=== PATIENT | male | born 1945 | race Asian ===

== ENCOUNTER 2023-11-07 14:26 | Outpatient (RCR) | payer OTHER, SELFPAY | END 2023-11-07 23:59 | disposition home or self-care (01) | LOC: RPT 14:26 | PROVIDERS: ATTENDING PHYSICIAN Psychiatry & Neurology Neurology; FAMILY PHYSICIAN Family Medicine | DX: R26.81 Unsteadiness on feet (principal); Z73.6 Limitation of activities due to disability; G25.81 Restless legs syndrome; R20.0 Anesthesia of skin; M25.512 Pain in left shoulder | CPT/HCPCS: 97110; 97112; 97163 ==

== ENCOUNTER 2023-11-11 14:24 | Outpatient (RCR) | payer OTHER, SELFPAY | END 2023-11-11 23:59 | disposition home or self-care (01) | LOC: RPT 14:24 | PROVIDERS: ATTENDING PHYSICIAN Psychiatry & Neurology Neurology; FAMILY PHYSICIAN Family Medicine | DX: R26.81 Unsteadiness on feet (principal); Z73.6 Limitation of activities due to disability | CPT/HCPCS: 97110; 97112 ==

== ENCOUNTER → 2023-11-14 08:34 | Outpatient (REF) | payer OTHER, SELFPAY | LOC: PAVMRI 08:34 | PROVIDERS: ATTENDING PHYSICIAN Psychiatry & Neurology Neurology | DX: R41.3 Other amnesia (principal) | CPT/HCPCS: 70553; A9575 ==

== ENCOUNTER 2024-10-21 15:16 | Inpatient (IN) | payer OTHER, SELFPAY ==
[2024-10-21] VITALS (11 sets, daily range): BP systolic 105–160; BP diastolic 55–93; BMI 20.4
--- NOTE | 2024-10-21 09:11 | ED.GENMED ---
History of Present Illness
<Jae Mckoy PA-C - Last Filed: 10/21/24 14:36>
General
Chief Complaint: Weakness
Source: patient, spouse and family
Time Seen by Provider: 10/21/24 08:58
History of Present Illness
History of Present Illness:
79-year-old male with past medical history of hypertension, hyperlipidemia, early Alzheimer's dementia, restless leg syndrome presenting to the emergency department with family who states that over the last 2 days patient has had decreasing change
in mental status noting to be very weak, yesterday unable to dress himself and had urinated on himself, today was unable to find the bathroom, defecated on himself and was too weak to walk. Family states this is very atypical for the patient.
Patient is able to tell me he is not having any pain and family is reporting there is no recent sick contacts, travel, recent antibiotics and patient has not been complaining of any chest pain, shortness of breath, cough, other URI-like symptoms,
abdominal pain, nausea or vomiting. No medications were provided prior to arrival. No other concerns at this time
Past History
<Jae Mckoy PA-C - Last Filed: 10/21/24 14:36>
Past History
ED Past Medical History: HTN, Hypercholesterolemia and Other (Dementia)
ED Past Surgical History: Urological
Social History
Tobacco: Non-smoker
Alcohol: None
Drug: None
Personal:
Living: with family
Review of Systems
<Jae Mckoy PA-C - Last Filed: 10/21/24 14:36>
Review of Systems
All Other Systems: ROS reviewed and negative except as documented in HPI and ROS
Phy Exam
<Jae Mckoy PA-C - Last Filed: 10/21/24 14:36>
Physical Exam
Physical Exam:
GENERAL: Alert , appears slightly older than stated age, soft-spoken, rigors
HEAD: Normocephalic atraumatic
EYE: Clear conjunctiva
NECK: Supple
ENT: o/p clr, mmm.
CARDIAC: Borderline tachycardic rate between 98 and 102 bpm, normal rhythm, systolic murmur at the left sternal border noted
LUNGS: Clear breath sounds bilaterally, no acute respiratory distress, no wheezes/rales/rhonchi
ABDOMEN: Soft, without focal tenderness, no r/g, no cvat
NEUROLOGICAL: Alert and oriented to person place and time
SKIN: Warm and dry, skin intact.
MUSCULOSKELETAL: No edema, well perfused.
PSYCH: Normal and appropriate interaction.
Scores
<Jae Mckoy PA-C - Last Filed: 10/21/24 14:36>
Heart Failure Risk
Heart Failure Risk Score: Not Applicable
Heart Score for Chest Pain Patients
STEMI patient?: Not applicable
Withdrawal Assessment of Alcohol
Withdrawal Assessment Completed?: Not applicable
Course
<Jae Mckoy PA-C - Last Filed: 10/21/24 14:36>
Orders/Labs/Results
Orders:
Orders
10/21/24 09:10
Straight cath- Treatment ONCE
0.9% Sodium Chloride 1000 ml [Nss] 1,000 ml IV BOLUS
CR Chest Portable - 1 View Urgent
Comment:
Reason For Exam: AMS, fever
Reason Study Needs to be Portable: Unable to Transport
10/21/24 09:11
CT Head W/o Iv Contrast Urgent
Comment:
Reason For Exam: AMS
10/21/24 09:16
Basic Metabolic Panel Urgent
Complete Blood Count/With Diff Urgent
Lactic Acid Q4H
Comment: CANCEL 2nd LACTIC ACID IF 1st LACTIC ACID IS LESS THAN 2
Blood Culture Q30M
[facility] Source: Blood/Venous
Specimen Description:
10/21/24 09:49
COVID-19 Antigen Urgent
Source: Nasal Swab
Urinalysis Reflex To Culture Urgent
Date Specimen was Collected: 10/21/24
Time Specimen was Collected: 09:38
Urine Microscopic Reflex Cult Urgent
Blood Culture Q30M
[facility] Source: Blood/Venous
Specimen Description:
10/21/24 09:57
Acetaminophen [Tylenol] 1,000 mg PO NOW STA
10/21/24 10:48
CT Chest/abd/pel W Iv Cont Urgent
Comment:
Reason For Exam: change in mental status, fever, unclear etiology
10/21/24 14:01
Piperacillin/Tazo 3.375 Gram [Zosyn] 3.375 gram in 50 ml IV NOW
Vancomycin [Vancocin] 1,500 mg 0.9% Sodium Chloride 500 ml [Nss] 500 ml IV NOW
Abnormal Lab Results
10/21/24 10/21/24
09:16 09:49
RBC 4.61 L 10^6/uL
(4.70-6.10)
MPV 10.6 H fL
(7.4-10.4)
Absolute Neuts (auto) 6.6 H 10^3/uL
(1.4-6.5)
Absolute Lymphs (auto) 1.0 L 10^3/uL
(1.2-3.4)
Neutrophils % 81.7 H %
(42.2-75.2)
Lymphocytes % 12.0 L %
(20.5-51.1)
Carbon Dioxide 19 L mmol/L
(22-30)
BUN 35 H mg/dl
(9-20)
Creatinine 1.4 H mg/dL
(0.7-1.3)
Glucose 127 H mg/dl
(70-99)
Urine Ketones 2+ A
(Negative)
Ur Occult Blood Reflex 4+ A
(Negative)
Urine RBC 3-6 A /HPF
(0-2)
Urine Bacteria (Reflex) Few A
(Negative)
Urine Albumin (Reflex) 2+ A
(Neg - Trace)
10/21/24 09:16
10/21/24 09:16
Vital Signs
Initial and Last Documented VS:
Initial Vital Signs
Temp Pulse Resp BP Pulse Ox
99.8 F 102 20 122/83 96
10/21/24 08:47 10/21/24 08:47 10/21/24 08:47 10/21/24 08:47 10/21/24 08:47
Last Documented Vital Signs
Temp Pulse Resp BP Pulse Ox
102 F H 76 17 145/74 95
10/21/24 09:56 10/21/24 13:30 10/21/24 13:30 10/21/24 13:09 10/21/24 13:30
<Nathaniel Lock, DO - Last Filed: 10/21/24 10:27>
Orders/Labs/Results
Orders:
Orders
10/21/24 09:10
Straight cath- Treatment ONCE
0.9% Sodium Chloride 1000 ml [Nss] 1,000 ml IV BOLUS
CR Chest Portable - 1 View Urgent
Comment:
Reason For Exam: AMS, fever
Reason Study Needs to be Portable: Unable to Transport
10/21/24 09:11
CT Head W/o Iv Contrast Urgent
Comment:
Reason For Exam: AMS
10/21/24 09:16
Basic Metabolic Panel Urgent
Complete Blood Count/With Diff Urgent
Lactic Acid Q4H
Comment: CANCEL 2nd LACTIC ACID IF 1st LACTIC ACID IS LESS THAN 2
Blood Culture Q30M
[facility] Source: Blood/Venous
Specimen Description:
10/21/24 09:49
COVID-19 Antigen Urgent
Source: Nasal Swab
Urinalysis Reflex To Culture Urgent
Date Specimen was Collected: 10/21/24
Time Specimen was Collected: 09:38
Urine Microscopic Reflex Cult Urgent
Blood Culture Q30M
[facility] Source: Blood/Venous
Specimen Description:
10/21/24 09:57
Acetaminophen [Tylenol] 1,000 mg PO NOW STA
10/21/24 10:48
CT Chest/abd/pel W Iv Cont Urgent
Comment:
Reason For Exam: change in mental status, fever, unclear etiology
10/21/24 14:01
Piperacillin/Tazo 3.375 Gram [Zosyn] 3.375 gram in 50 ml IV NOW
Vancomycin [Vancocin] 1,500 mg 0.9% Sodium Chloride 500 ml [Nss] 500 ml IV NOW
Abnormal Lab Results
10/21/24 10/21/24
09:16 09:49
RBC 4.61 L 10^6/uL
(4.70-6.10)
MPV 10.6 H fL
(7.4-10.4)
Absolute Neuts (auto) 6.6 H 10^3/uL
(1.4-6.5)
Absolute Lymphs (auto) 1.0 L 10^3/uL
(1.2-3.4)
Neutrophils % 81.7 H %
(42.2-75.2)
Lymphocytes % 12.0 L %
(20.5-51.1)
Carbon Dioxide 19 L mmol/L
(22-30)
BUN 35 H mg/dl
(9-20)
Creatinine 1.4 H mg/dL
(0.7-1.3)
Glucose 127 H mg/dl
(70-99)
Urine Ketones 2+ A
(Negative)
Ur Occult Blood Reflex 4+ A
(Negative)
Urine RBC 3-6 A /HPF
(0-2)
Urine Bacteria (Reflex) Few A
(Negative)
Urine Albumin (Reflex) 2+ A
(Neg - Trace)
10/21/24 09:16
10/21/24 09:16
Vital Signs
Initial and Last Documented VS:
Initial Vital Signs
Temp Pulse Resp BP Pulse Ox
99.8 F 102 20 122/83 96
10/21/24 08:47 10/21/24 08:47 10/21/24 08:47 10/21/24 08:47 10/21/24 08:47
Last Documented Vital Signs
Temp Pulse Resp BP Pulse Ox
102 F H 76 17 145/74 95
10/21/24 09:56 10/21/24 13:30 10/21/24 13:30 10/21/24 13:09 10/21/24 13:30
<Jae Mckoy PA-C - Last Filed: 10/21/24 14:36>
MDM/Problems Addressed
Differential Diagnosis Includes:
Urinary tract infection
Pneumonia
COVID/flu or other viral etiology
Given the cardiac murmur endocarditis considered although patient has never had cardiac workup to confirm if this murmur is new or old
Bacteremia/sepsis
Dehydration
Anemia
MDM/Problems Addressed:
79-year-old male presenting to the emergency department for evaluation of change in mental status over the last 24 to 48 hours. Today patient defecated on himself, was unaware of where he was in the house and required significant assistance to
move. On arrival here patient is mildly tachycardic and found to have a low-grade oral temperature of 99.8. Will check rectal temperature. Sepsis workup initiated. Fluids ordered. Anticipate admission
<Jae Mckoy PA-C - Last Filed: 10/21/24 14:36>
*Radiology
Radiology exam reviewed: radiology read reviewed
*Pulse Oximetry
SaO2: 96
Oxygen Mode of Delivery: Room air
Patient hypoxic: no
*Haul Driver Interpretation
Rate: tachycardiac
Heart Rate: 100
Rhythm: sinus
*Critical Care Note
Total Time (30-74mins, 75-104mins- exclusive of procedures): Not Applicable
Data Reviewed
Review of Other/Old Records Reveals: Radiology Studies
<Jae Mckoy PA-C - Last Filed: 10/21/24 14:36>
Patient Management
Discussion with other providers: Hospitalist
Escalation/DeEscalation of care consider admission/obs:
Patient's workup is unrevealing for any obvious infectious etiologies. He remains altered per family. Lactic acid and white blood cell count normal. CT with possible colitis. Discussed case with hospitalist team who accepts for admission. They
are requesting we order broad-spectrum antibiotics to cover for bacteremia. Vancomycin and Zosyn were ordered.
ED Attending Note
<Jae Mckoy PA-C - Last Filed: 10/21/24 14:36>
-
Portions of this chart may have been created with voice recognition software.� Occasional wrong word or��sound alike� substitutions may have occurred due to the inherent limitations of voice recognition software.
<Nathaniel Lock DO - Last Filed: 10/21/24 10:27>
ED Attending Note
Patient seen and examined by attending physician: Yes
I performed the substantive portion of visit, reviewed & personally made and approve the management plan that is documented in note by myself or TOSIN.: Yes
ED Attending Note:
79-year-old male who presents with increased weakness. Has a history of BPH hypertension. does report he has been having some upper back pain over the last 1 week. Skin appears normal. Abdomen soft and nontender. Chest x-ray unremarkable.
White blood cell count 8.1. For now unclear source but will cover broad-spectrum antibiotics. Blood cultures pending no significant risk factors for spinal infection. No meningismus. Question whether this could be viral versus other
Discharge Plan
Departure
Patient Disposition: Admit
Date of Disposition: 10/21/24
Time of Disposition: 13:59
Presentation/result/management discussed w/ accepting MD/DO: Hospitalist
Discharge Problem:
Fever, Altered mental status
Prescriptions:
No Action
simvastatin 40 MG tablet
40 mg PO DAILY
pramipexole 0.5 MG tablet
0.5 mg PO HS
amlodipine 10 MG tablet
10 mg PO DAILY
losartan [Cozaar] 100 MG tablet
100 mg PO DAILY
tolterodine 4 MG capsule,extended release 24hr
4 mg PO DAILY 14 Days Qty: 14 0RF
phenazopyridine 200 MG tablet
200 mg PO [id number] PRN (Reason: burning/stinging with voiding) 5 Days Qty: 10 0RF
levofloxacin 500 MG tablet
500 mg PO DAILY 5 Days Qty: 5 0RF
Referrals:
Campbell Mejia DO [Family Provider, Family Practice]
Interventions
Interventions:
*Risk Screen - Suicide Last Done: 10/21/24 09:54
*Neglect/Abuse Screening Last Done: 10/21/24 09:54
*ED- Fall Risk Assessment Last Done: 10/21/24 09:54
*ED COVID-19 Vaccine History Last Done: 10/21/24 09:54
ED- Cardiac Assessment Last Done: 10/21/24 09:54
ED- Neurological Assessment Last Done: 10/21/24 09:54
ED- Pulmonary Assessment Last Done: 10/21/24 09:54
Discharge Date and Time
Print Language: Mohawk
[2024-10-21 09:28] LABS: Hematocrit 41.1 % (39.0-52.0); Hemoglobin 14.2 g/dL (13.0-18.0); Mean Corp Hgb Conc. 34.5 g/dL (33.0-37.0); Mean Corpuscular Volume 89.2 fL (80.0-94.0); Nucleated Red Blood Cells % 0 % (-); Red Cell Dist. Width 12.1 % (11.5-14.5)
[2024-10-21 09:50] LABS: Blood Urea Nitrogen 35 mg/dl (9-20); Calcium 9.1 mg/dl (8.4-10.2); Carbon Dioxide 19 mmol/L (22-30); Chloride 105 mmol/L (98-107); Glucose 127 mg/dl (70-99); Sodium 135 mmol/L (135-145); eGFR 50.81
[2024-10-21] MEDS: NSS 1000 IV ×2 (09:51→17:57)
[2024-10-21 09:54] LABS: Platelet Count 146 10^3/uL (130-400)
[2024-10-21] MEDS: TYLENOL 1000 MG PO (10:02)
[2024-10-21 10:14] LABS: Urine Character Clear (Clear)
[2024-10-21 10:19] LABS: COVID-19 Antigen Negative (Negative)
[2024-10-21 10:23] LABS: Urine White Cell 0-2 /HPF (0-5)
[2024-10-21] MEDS: ZOSYN 50 IV ×2 (14:24→20:28)
[2024-10-21] MEDS: VANCOCIN 530 MG IV (15:33)
--- NOTE | 2024-10-21 15:37 | HPS.HSE ---
Addendum entered and electronically signed by Jory Willis MD 10/21/24 17:03:
Patient condition discussed with the 2 daughters 1 was at the bedside and the other 1 is a physician in [place] over the phone and all the question answered patient condition explained to them in detail.
Addendum entered and electronically signed by Jory Willis MD 10/21/24 15:59:
Other impression is systolic murmur according to the patient and the family is new
With been febrile, will get an echo and blood culture to rule out endocarditis but unlikely.
Original Note:
Family Physician
-
Family Physician: Campbell Mejia DO
Chief Complaint
-
Generalized weakness and abdominal discomfort
History of Present Illness
79-year-old male from [place], speaks good degree of Japanese presented to the hospital complaining of generalized body ache, poor appetite, fever and abdominal bloating and discomfort over the last few days, admit poor appetite and denied any nausea
or vomiting while admitted subjective fever and chills, denies any diarrhea any constipation or any rectal bleeding or change in stool or urine color, no sick contacts or recent travel, no headache or vision change or any weakness or numbness in
extremities.
Workup in the ER kind concerning for fever with a CT abdomen pelvis concerning for colitis.
According to the family members they were here earlier subacute dementia and had some change in mental status he has been unable to express or care for himself and has been urinating on himself. And look like today was not able to find the
bathroom. His condition discussed with the ER physician as on my eval no family member was in the room.
Medical History
Past Medical History
Past Medical History: Reports Other
Additional Past Medical History:
Past medical history:
Hypertension
Sleep anemia
Seasonal allergy
Restless leg syndrome
Dementia
Mild to moderate mitral regurgitation
Surgical history: Appendectomy
TURP
Cataract surgery
Social history: Lives with the family, no smoking alcohol use
Family history: Reviewed and noncontributory
Past Surgical History: Reports Other
Social History
Unable to obtain full social history at this time due to: Other
Family History
Family History: Other
Allergies / Home Medications
Allergies reflects when Allergies were last updated in [employer].
Home Medications with original date entered in [employer]
Allergy/Medication List:
Allergies
Allergy/AdvReac Type Severity Reaction Status Date / Time
seasonal Allergy nasal Uncoded 10/21/24 08:50
congestion
Home Medications
losartan 100 mg tablet (Cozaar) 100 mg PO DAILY Blood pressure 02/13/21
simvastatin 40 mg tablet 40 mg PO QPM High cholesterol 02/13/21
amlodipine 2.5 mg tablet (Norvasc) 2.5 mg PO DAILY 10/21/24
donepezil 10 mg tablet 10 mg PO HS 10/21/24
metformin 500 mg tablet,extended release 24 hr 500 mg PO DAILY 10/21/24
pramipexole 0.25 mg tablet 0.25 mg PO HS 10/21/24
Review of Systems
-
A 12 point ROS was completed and negative except as noted: Yes
Physical Exam
Vital Signs
Vital Signs
Temp Pulse Resp BP Pulse Ox
99.1 F 82 16 156/72 98
10/21/24 14:30 10/21/24 15:00 10/21/24 15:00 10/21/24 14:00 10/21/24 14:00
Physical exam:
General: Awake, alert and oriented x2, lethargic, not in distress and holds appropriate conversation, speaks in low tone of voice.
HEENT: No active discharge, ecchymosis or bruising, dry lips, tongue and mucous membrane.
Eyes: No discharge or red conjunctiva, no nystagmus, pupils are reactive and equal
Neck:Supple, no JVD no bruit no goiter.
Respiratory: Normal AP contour and diameter, normal chest wall movement, normal respiratory effort, no respiratory distress,
Lungs: Good air entry bilaterally, no wheezing or rhonchi, no rales or crackles
Heart: S1, S2 regular, normal rate, no added sound.
Gastrointestinal: Positive bowel sounds, soft, nontender, no guarding or rigidity or organomegaly
Musculoskeletal: , no chest wall abnormality or tenderness. , no muscle tenderness or any joint swelling or tenderness.
Extremities: Mild lower extremities pitting edema, good peripheral pulses, good range of motion
Skin: Warm and dry, no ulceration, normal color.
Neurological: Lethargic, speaks in low tone of voice, oriented x 2, moves extremities freely, no facial droop
Psychiatric: Normal mood, questionable judgment, and insight, flat affect
Physical Exam
General: Other
Laboratory Results
-
10/21/24 09:16
10/21/24 09:16
Laboratory Results
Lactic Acid Cancelled 10/21/24 13:15
Total Bilirubin Cancelled 10/21/24 09:16
AST Cancelled 10/21/24 09:16
ALT Cancelled 10/21/24 09:16
Alkaline Phosphatase Cancelled 10/21/24 09:16
CT chest, abdomen and pelvis:
Moderate circumferential thickening of the distal sigmoid and rectum with mild proximal large bowel dilatation probably due to colitis. Clinical correlation recommended. Inflammation, infection and less likely ischemia not excluded.,
Bilateral too small to characterize hypodense renal lesions likely benign cysts. Stable Simple right renal cyst. New
Severe prostate hypertrophy. Progressed.
CT brain, showed no acute abnormality
Data Reviewed
-
Diagnostic Radiology: Image Personally Visualized and interpreted and Report Reviewed by me
Lab Data: Labs Reviewed by me
Old Records: Reviewed
Impression/Plan
-
IMPRESSION:
79-year-old male brought to the hospital for generalized weakness, and mental status change and patient complaining of abdominal discomfort and poor appetite and he is a poor historian
Workup currently concerning for colitis per abdominal CAT scan.
Acute colitis
Started on a full liquid diet and advance as tolerated
IV Zosyn
IV fluid
Monitor vital sign
Recheck lab
Acute on chronic kidney injury: Likely secondary poor oral intake
IV fluid
Recheck
Avoid nephrotoxin.
Diabetes:
Continue to hold metformin
Glucoscan
Restless leg syndrome, pramipexole at bedtime
All discussed with the patient
Discussed with ER physician
CODE STATUS full code
DVT prophylaxis heparin subcu
--- NOTE | 2024-10-21 15:50 | CM ---
office manager reviewed patient's chart and met with patient and daughter at bedside, patient lives with his spouse in a 2 story home, patient is independent with adl's and ambulation, no dme, per daughter patient has balance issues while walking,
patient would benefit from PT/OT evaluations.
PCP: Campbell Mejia
Pharmacy: Pharmacy In [place].
Plan; Await PT/OT evaluation and discuss discharge planning needs.
[2024-10-21 16:35] LABS: Glucose - Point of Care 113 mg/dl (70-99)
[2024-10-21] MEDS: NOVOLOG FLEXPEN-MODERATE RESISTANCE SC (16:40)
[2024-10-21] MEDS: TYLENOL 650 MG PO ×2 (17:33→22:29)
[2024-10-21] MEDS: HEPARIN 5000 UNITS SC ×2 (17:56→23:10)
--- NOTE | 2024-10-21 18:13 | PHA.VAN.IN ---
Assessment
- Assessment
Renal Function: SCR Appears Elevated from baseline
Concomitant Antimicrobials: Zosyn 3.375 gram IV q6h
Plan
- Plan
Initial / Loading Dose: Vancomycin 1500 mg IV - 10/21
Maintenance Regimen: Dose by level regimen
Monitoring: Vancomycin random level 10/22 06:00
Pharmacokinetics Vancomycin I
- -
Patient Age: 79
Patient Sex: Male
Vancomycin Day #: 1
Indication: Gi / Intra-Abdominal
Requesting Provider: SARATH Clemente
Pertinent Antimicrobial Allergies:
None
Height / Weight:
Height 5 ft 9 in
Actual Weight 62.5 kg
Pertinent Past Medical History: BMI: 20.3
- Vital Signs / Lab Results
Temp Pulse Resp BP Pulse Ox
100.9 F H 101 23 123/72 98
10/21/24 17:02 10/21/24 17:06 10/21/24 17:00 10/21/24 17:06 10/21/24 14:00
Lab Results - Hematology
10/21/24
09:16
WBC 8.1
Lab Results - Chemistry
10/21/24
09:16
BUN 35 H
Creatinine 1.4 H
Albumin Cancelled
10/21/24 10/21/24
09:16 13:15
Lactic Acid 1.9 Cancelled
Lab Results - Urine
10/21/24
09:49
Urine Nitrite (Reflex) Negative
Leukocyte Esterase Rfl Negative
Urine WBC (Reflex) 0-2
Ur Squamous Epith Cells 3-5
Urine Bacteria (Reflex) Few A
[2024-10-21] MEDS: LIPITOR 20 MG PO (19:18)
--- NOTE | 2024-10-21 20:32 | PTCARENOTE ---
Rec'd pt from ER. transferred to bed. NSS infusing at 80ml/hr/ and daughter at the bedside assisting with admission questions. pt denies pain. call cueva in reach. oriented pt and family to room.
[2024-10-21 20:56] LABS: Glucose - Point of Care 96 mg/dl (70-99)
[2024-10-21] MEDS: ARICEPT 10 MG PO (22:14)
[2024-10-21] MEDS: MIRAPEX 0.25 MG PO (23:09)
[2024-10-22] MEDS: ZOSYN 50 IV ×4 (02:13→19:40)
[2024-10-22] MEDS: TYLENOL 650 MG PO ×3 (04:40→18:15)
[2024-10-22 07:10] VITALS: BP 146/68
[2024-10-22 07:18] LABS: Glucose - Point of Care 94 mg/dl (70-99)
--- NOTE | 2024-10-22 07:52 | W.PN.HOSP.TC ---
Today's Communication/Plan
-
cont empiric abx
follow cultures
cont IVF support till PO intake improves
trend temp, fever control
Assessment / Plan
Assessment / Plan
Physical Exam
General: No pallor, cyanosis, or jaundice. Appears generally weak
HEENT: Normocephalic atraumatic moist mucus membranes
NECK: Supple. No JVD Carotid Bruits
RESPIRATORY: Lungs clear to auscultation. No crackles wheezes stridor
CVS: S1, S2 normal. RRR. systolic murmur /
ABDOMEN: Soft, non-tender. No distension. BS+/normal.
EXTREMITIES: No peripheral cyanosis or edema.
NURSING PROJECT COORDINATOR: Lethargic arousable oriented x 3 follows simple commands
Psych: calm
IMPRESSION:
79M hx HTN mild dementia baseline independent ADL's here for generalized weakness, AMS, and c/o abdominal discomfort and poor appetite. Workup currently concerning for colitis per abdominal CAT scan and possible sepsis w/ fever and sinus
tachycardia. No significant lactic acidosis or hypotension.
Acute colitis
Sepsis (leukocytosis tachycardia)
Acute Toxic Metabolic Encephalopathy
Started on a full liquid diet, advance as tolerated
IVF support till oral intake improves
Follow blood cx's NGTD
ID eval appreciated
cont empiric IV Zosyn vanc as per ID
trend temp WBC
CT Head appreciated no acute abn's
Systolic Murmur 3/
ECHO appreciated EF 65-70% mild aortic stenosis mild mod MR
ECHO also noted mobile/aneurysmal interarterial septum with no evidence shunting, possible lipomatous hypertrophy per, no further cardiac work up indicated as per discussion with Cardiology
Severe prostate hypertrophy progresses as noted on CT
Hx TURP follows Dr Mark najera
bladder scan prn
Acute Vs CKD III
monitor renal function
Diabetes:
hold metformin
A1c 6.1 noted prediabetes level
sliding scale for now
Restless leg syndrome, pramipexole at bedtime
CODE STATUS full code
DVT prophylaxis heparin subcu
Discussed with patient's daughter Diego Weiss
I spent a total of 55 minutes with the patient or on the floor. More than 50% of this time involved counseling and coordination of care.
Anticipated Discharge: 24 - 48 hours
Subjective/Interval History
-
Date of Service: October 22, 2024
lethargic but arousable oriented x3 follows simple commands. Appears relatively comfortable at time of evaluation. noted intermittent fever chills throughout day.
Objective Data
-
Labs:
Laboratory Results
10/22/24
07:12
WBC Pending
Hgb Pending
Hct Pending
Plt Count Pending
Sodium Pending
Potassium Pending
Chloride Pending
Carbon Dioxide Pending
BUN Pending
Creatinine Pending
Glucose Pending
Calcium Pending
Vital Signs:
Vital Signs
Temp Pulse Resp BP Pulse Ox
99.9 F 80 18 118/85 95
10/22/24 01:00 10/21/24 23:18 10/21/24 23:18 10/21/24 23:18 10/21/24 23:18
I&O
10/21/24 10/22/24 10/23/24
06:59 06:59 06:59
Intake Total 1000 / 1000
Balance 1000 / 1000
[2024-10-22 07:55] LABS: Hematocrit 37.4 % (39.0-52.0); Hemoglobin 12.5 g/dL (13.0-18.0); Mean Corp Hgb Conc. 33.4 g/dL (33.0-37.0); Mean Corpuscular Volume 92.1 fL (80.0-94.0); Platelet Count 145 10^3/uL (130-400); Red Cell Dist. Width 12.1 % (11.5-14.5)
[2024-10-22] MEDS: HEPARIN 5000 UNITS SC ×3 (08:03→23:07)
[2024-10-22 08:08] LABS: Blood Urea Nitrogen 20 mg/dl (9-20); Calcium 7.9 mg/dl (8.4-10.2); Carbon Dioxide 23 mmol/L (22-30); Chloride 109 mmol/L (98-107); Estimated Creatinine Clearance 38 ml/min; Glucose 89 mg/dl (70-99); Potassium 3.5 mmol/L (3.5-5.1); Sodium 138 mmol/L (135-145); eGFR 55.53
[2024-10-22] MEDS: NOVOLOG FLEXPEN-MODERATE RESISTANCE SC ×2 (08:22→16:53)
[2024-10-22] MEDS: COZAAR 100 MG PO (08:27)
[2024-10-22] MEDS: NORVASC 2.5 MG PO (08:27)
--- NOTE | 2024-10-22 08:52 | PHA.VAN.FU ---
Vancomycin Assessment / Plan
- Assessment
Renal Function: SCR Decreasing (SCR slightly decreased, BUN decreased)
WBC's are: WNL
In the past 24 hrs, patient has been: Febrile
Concomitant Antimicrobials: piperacillin/tazobactam
- Assessment - Therapeutic Drug Monitoring
Random Level: 8.7 - drawn ~15.5H after 1500mg loading dose
- Dosing Plan
Dosing by Level: Re-dose today (Vanc 1000mg)
- Monitoring Plan
Random Level: 10/23 06
- Follow Up
Pharmacy will continue to follow.
Vancomycin Follow UP
- -
Patient Age: 79
Patient Sex: Male
Vancomycin Day #: 2
Indication: Gi / Intra-Abdominal
Requesting Provider: SARATH Clemente
Pertinent Antimicrobial Allergies:
None
Height / Weight:
Height 5 ft 7 in
Actual Weight 59.109 kg
Pertinent Past Medical History: BMI: 20.3
- Vital Signs / Lab Results
Temp Pulse Resp BP Pulse Ox
97.8 F 67 20 146/68 97
10/22/24 08:06 10/22/24 07:10 10/22/24 07:10 10/22/24 07:10 10/22/24 07:10
Lab Results - Hematology
10/21/24 10/22/24
09:16 07:12
WBC 8.1 10.2
Lab Results - Chemistry
10/21/24 10/22/24
09:16 07:12
BUN 35 H 20
Creatinine 1.4 H 1.3
Estimated Creat Clear 38
Albumin Cancelled
10/21/24 10/21/24
09:16 13:15
Lactic Acid 1.9 Cancelled
Lab Results - Urine
10/21/24
09:49
Urine Nitrite (Reflex) Negative
Leukocyte Esterase Rfl Negative
Ur Squamous Epith Cells 3-5
Therapeutic Drug Monitoring
Random Vancomycin 8.7 ug/ml 10/22/24 07:12
[2024-10-22] MEDS: VANCOCIN 200 IV (09:02)
[2024-10-22 09:56] LABS: Glycohemoglobin (HgbA1c) 6.1 % (4.0-5.6)
[2024-10-22 11:37] LABS: Glucose - Point of Care 176 mg/dl (70-99)
[2024-10-22] MEDS: NOVOLOG FLEXPEN-MODERATE RESISTANCE 1 UNITS SC (11:45)
[2024-10-22] MEDS: NSS 1000 IV (14:14)
[2024-10-22 15:28] VITALS: BP 154/71
[2024-10-22 15:37] LABS: Vitamin D, 25-OH*** 35.3 ng/mL (30-80)
--- NOTE | 2024-10-22 16:16 | CON.ID ---
Consultation
-
Date/Time Consultation Requested: 10/22/2024 1438
Date/Time Consultation Performed: 10/22/2024 1556
Requesting Provider: Dr. Mays
Performing Provider: Dr. Cruz
Reason for Consultation: Encephalopathy
Chief Complaint / Past History
History of Present Illness
Bryan Weiss is a 79-year-old Bengali male being evaluated at the request of Dr. Mays in regards to encephalopathy. History is obtained from chart review, along with patient interview, although patient was found to provide only limited history to me.
The patient has known underlying history of Alzheimer's disease although reportedly mild, and can usually feel most of his activities of daily living. He presents to [facility] on 10/21 following approximately 48 hours of increasing
weakness, generalized malaise, inability to dress, and instances of incontinence of urine. All of the symptoms are reported to be new and not attributable to his history of Alzheimer's. Additional history includes that of some abdominal bloating
and discomfort over the prior several days, along with poor appetite. No history of nausea or vomiting.
In the ER he was found to have a temperature of 102 degrees rectally. He is continued to have fevers since, although temperature curve is slightly improved. He was not found to have a leukocytosis, but did have a left shift. He has been started
on empiric antibiotics (vancomycin, Zosyn) and infectious diseases asked to comment upon further antibiotic management.
At the present time he denies any pain to me. He denies any cough. He denies any headache. He denies any abdominal discomfort. No other review of systems could be obtained at this time.
Past History
Additional Past Medical History:
HTN
HLD
Alzheimer's disease
Restless leg syndrome
Mitral regurgitation
Additional Past Surgical History:
Appendectomy
TURP
Cataract surgery
Allergy History:
seasonal Allergy (Uncoded 10/21/24 08:50)
nasal congestion
Medications Reviewed: Yes
Current Antibiotics:
Zosyn
Vancomycin
Social History
Tobacco: Non-Smoker
Alcohol: None
Drug: None
Personal:
Living: With Family
Employment: Retired
Review of Systems
Vital Signs
Temp Pulse Resp BP Pulse Ox
100.1 F 71 20 154/71 96
10/22/24 15:28 10/22/24 15:28 10/22/24 15:28 10/22/24 15:28 10/22/24 15:28
Physical Exam
Physical Exam
Constitutional: Acutely Ill, Chronically Ill and Non-toxic
Eyes: Pupils Equal, Pupils Round, No Conjunctival Hemorrhage and Sclera Anicteric
Pharynx: Benign
Oral: No Thrush and No Ulcers
Cardiovascular: Regular Rate and S1/S2; Negative S3/S4
Pulmonary: Clear; Negative Wheezes, Rales or Rhonchi
Gastrointestinal: Soft, Non Tender, Non Distended, Normal Bowel Sounds, No Rebound and No Guarding
Extremities: Negative Edema, Cyanosis, Erythema, Splinter Hemorrhage, Venous Insufficiency or Janeway Lesions
Musculoskeletal: Negative Joint Swelling or Joint Effusion
Skin: Warm and Dry
Neurological: Awake; Negative Meningeal Signs
Psychological: Calm
Lab / Diagnostic Study Results
10/22/24 07:12
10/22/24 07:12
Abs Immat Gran (auto) 0.0 10^3/uL (0-0.05) 10/21/24 09:16
Absolute Neuts (auto) 6.6 10^3/uL (1.4-6.5) H 10/21/24 09:16
Absolute Lymphs (auto) 1.0 10^3/uL (1.2-3.4) L 10/21/24 09:16
Absolute Monos (auto) 0.5 10^3/uL (0.1-0.6) 10/21/24 09:16
Absolute Basos (auto) 0.0 10^3/uL (0-0.2) 10/21/24 09:16
Immature Gran % 0.4 % (0-0.5) 10/21/24 09:16
Neutrophils % 81.7 % (42.2-75.2) H 10/21/24 09:16
Lymphocytes % 12.0 % (20.5-51.1) L 10/21/24 09:16
Monocytes % 5.7 % (1.7-9.3) 10/21/24 09:16
Eosinophils % 0.1 % (0-6) 10/21/24 09:16
Basophils % 0.1 % (0-2) 10/21/24 09:16
Lactic Acid Cancelled 10/21/24 13:15
Ur Squamous Epith Cells 3-5 /LPF (Few) 10/21/24 09:49
Microbiology Results
Micro:
10/22/24 14:16 Nasal Screen MRSA (PCR) - Pending
Nose
10/21/24 09:49 Blood Culture - Preliminary
Blood/Venous No Growth in 24 hours- Final report to follow
10/21/24 09:16 Blood Culture - Preliminary
Blood/Venous No Growth in 24 hours- Final report to follow
Imaging:
10/21/2024 CT chest/abdomen/pelvis: no abnormal parenchymal pulmonary masses. No significant pulmonary parenchymal airspace disease. No pleural effusion. Liver, spleen, gallbladder and pancreas are unremarkable. Abdominal aorta is normal in
caliber. No significant abdominal lymphadenopathy noted. Moderate circumferential thickening of the distal sigmoid colon extends into the rectum. No free fluid. Urinary bladder is unremarkable.
Assessment / Plan
Acute encephalopathy of unclear etiology; ?infectious ?TME
Fever
Normal white count with left shift
HTN
HLD
Alzheimer's disease
Restless leg syndrome
Mitral regurgitation
Recommendations:
At present, no immediately identifiable infectious source noted.
Continue with empiric antibiotics (vancomycin, Zosyn). Follow vancomycin levels closely to prevent nephrotoxicity
Trend white count and temperature curve.
If fevers and encephalopathy persist would obtain LP and sent for appropriate studies.
Follow pending blood cultures
Further recommendations as additional data is returned.
Care Review
Plan reviewed with: Physician (Hospitalist)
[2024-10-22 16:36] LABS: Glucose - Point of Care 106 mg/dl (70-99)
[2024-10-22] MEDS: LIPITOR 20 MG PO (18:06)
[2024-10-22] MEDS: NSS IV (18:18)
[2024-10-22 19:23] VITALS: BP 107/53
[2024-10-22 19:29] LABS: Hepatitis C Antibody Reactive (Negative)
[2024-10-22 20:55] LABS: Glucose - Point of Care 101 mg/dl (70-99)
[2024-10-22] MEDS: MIRAPEX 0.25 MG PO (21:04)
[2024-10-22] MEDS: ARICEPT 10 MG PO (21:04)
[2024-10-22 23:21] VITALS: BP 160/76
[2024-10-23] VITALS (10 sets, daily range): BP systolic 69–182; BP diastolic 53–98; PULSE 66; O2SAT 93
[2024-10-23] MEDS: TYLENOL 650 MG PO ×3 (01:11→19:15)
[2024-10-23] MEDS: ZOSYN 50 IV ×4 (01:11→19:15)
[2024-10-23] MEDS: NSS 1000 IV ×2 (05:11→18:26)
[2024-10-23 07:10] LABS: Glucose - Point of Care 90 mg/dl (70-99)
[2024-10-23] MEDS: NOVOLOG FLEXPEN-MODERATE RESISTANCE SC ×2 (07:19→16:40)
[2024-10-23] MEDS: HEPARIN 5000 UNITS SC ×3 (07:20→23:44)
[2024-10-23] MEDS: NORVASC 2.5 MG PO (07:20)
[2024-10-23] MEDS: COZAAR 100 MG PO (07:20)
[2024-10-23 08:37] LABS: Hematocrit 37.7 % (39.0-52.0); Hemoglobin 12.9 g/dL (13.0-18.0); Mean Corp Hgb Conc. 34.2 g/dL (33.0-37.0); Mean Corpuscular Volume 89.8 fL (80.0-94.0); Platelet Count 146 10^3/uL (130-400); Red Cell Dist. Width 11.9 % (11.5-14.5)
--- NOTE | 2024-10-23 09:05 | PTOTSP ---
Speech Therapy Evaluation:
Pt with chronic risk factors of dysphagia (dementia), compounded by generalized weakness and encephalopathy in the setting of colitis. At bedside, mild oral impairments noted with brief oral holding, prolonged mastication, and delayed AP transfers.
No overt s/sx of aspiration across trials. CXR without pneumonia, pt without PLANT ETIOLOGIST/dysphagia hx, WBC WNL, and pt on room air.
Recommend:
1. Initiate IDDSI Level 7 (regular solids), continue thin liquids
2. Medications as best tolerated
3. Strict aspiration precautions
4. Partial assistance with intake, Full supervision
5. PLANT ETIOLOGIST to follow to monitor tolerance of diet and provide education in aspiration precautions
[2024-10-23 09:32] LABS: Blood Urea Nitrogen 13 mg/dl (9-20); Calcium 7.9 mg/dl (8.4-10.2); Carbon Dioxide 25 mmol/L (22-30); Chloride 106 mmol/L (98-107); Estimated Creatinine Clearance 41 ml/min; Glucose 112 mg/dl (70-99); Magnesium 2.1 mg/dl (1.6-2.3); Potassium 3.3 mmol/L (3.5-5.1); Sodium 136 mmol/L (135-145); eGFR > 60.00
--- NOTE | 2024-10-23 09:37 | W.PN.ID1 ---
Date of Service
Date of Service: October 23, 2024
Today's Communication
Continue antibiotics. See below�
Assessment / Plan
Acute encephalopathy of unclear etiology; ?infectious ?TME
Fever
Normal white count with left shift
HTN
HLD
Alzheimer's disease
Restless leg syndrome
Mitral regurgitation
Recommendations:
Ongoing fevers noted despite broad-spectrum antibiotics.
Continue with empiric antibiotics (vancomycin, Zosyn). Follow vancomycin levels closely to prevent nephrotoxicity
Trend white count and temperature curve.
Given ongoing fevers and encephalopathy, would pursue LP.
Follow pending blood cultures
����������������������������������������������������������
Chief Complaint
-: Fever and Other (Encephalopathy)
Subjective / Review of Systems
Patient seen and examined. Ongoing fevers noted overnight to 102.3 degrees. at the bedside and reports ongoing decreased mental acuity.
Vital Signs / Physical Exam
Vital Signs
Vital Signs
Temp Pulse Resp BP Pulse Ox
100.4 F H 72 20 152/71 98
10/23/24 07:10 10/23/24 07:10 10/23/24 07:10 10/23/24 07:10 10/23/24 07:10
Physical Exam
Constitutional: Comfortable, Chronically Ill and Non-toxic
Eyes: Sclera Anicteric
Cardiovascular: Regular Rate and S1/S2; Negative S3/S4
Pulmonary: Clear and Non Labored
Gastrointestinal: Non Distended, Normal Bowel Sounds and No Rebound
Extremities: Negative Edema, Cyanosis, Erythema, Splinter Hemorrhage, Venous Insufficiency or Janeway Lesions
Musculoskeletal: Negative Joint Swelling or Joint Effusion
Neurological: Other (Arousable to touch and voice.)
Psychological: Calm
Objective Data
Lab Data
Lab Results
10/23/24 08:04
10/23/24 08:04
Estimated Creat Clear 41 ml/min 10/23/24 08:04
Lactic Acid Cancelled 10/21/24 13:15
Total Bilirubin Cancelled 10/21/24 09:16
AST Cancelled 10/21/24 09:16
ALT Cancelled 10/21/24 09:16
Alkaline Phosphatase Cancelled 10/21/24 09:16
Most recent labs reviewed.
Micro Results:
10/21/24 09:16 Blood Culture - Preliminary
Blood/Venous No Growth in 48 hours- Final report to follow
10/22/24 14:16 Nasal Screen MRSA (PCR) - Final
Nose MRSA not detected - performed by PCR methodology.
10/21/24 09:49 Blood Culture - Preliminary
Blood/Venous No Growth in 24 hours- Final report to follow
Imaging:
10/21/2024 CT chest/abdomen/pelvis: no abnormal parenchymal pulmonary masses. No significant pulmonary parenchymal airspace disease. No pleural effusion. Liver, spleen, gallbladder and pancreas are unremarkable. Abdominal aorta is normal in
caliber. No significant abdominal lymphadenopathy noted. Moderate circumferential thickening of the distal sigmoid colon extends into the rectum. No free fluid. Urinary bladder is unremarkable.
Care Review
Plan reviewed with: Physician (Hospitalist)
[2024-10-23] MEDS: VANCOCIN 200 IV (09:51)
--- NOTE | 2024-10-23 10:39 | CM ---
Patient seen at bedside on . Patient sister with patient and assisting to eat broth. Patient for therapy assessment, recommendation is for SNF at this time. Patient plan is for discharge home with supports pending progress. CM will continue to
follow for discharge planning needs.
Plan; home with VN vs SNF; pending patient medical treatment plan
--- NOTE | 2024-10-23 11:08 | W.PN.HOSP.TC ---
Today's Communication/Plan
-
cont empiric abx
IVF support
bladder scan prn
follow cx's
Fever control
LP today with IR
PT/OT
Assessment / Plan
Assessment / Plan
Physical Exam
General: No pallor, cyanosis, or jaundice. Appears generally weak
HEENT: Normocephalic atraumatic moist mucus membranes
NECK: Supple. No JVD Carotid Bruits
RESPIRATORY: Lungs clear to auscultation. No crackles wheezes stridor
CVS: S1, S2 normal. RRR. systolic murmur 3/6
ABDOMEN: Soft, non-tender. No distension. BS+/normal.
EXTREMITIES: No peripheral cyanosis or edema.
CERAMIC ENGINEER: Lethargic arousable oriented x 3 follows simple commands
Psych: calm
IMPRESSION:
79M hx HTN mild dementia baseline independent ADL's here for generalized weakness, AMS, and c/o abdominal discomfort and poor appetite. Workup currently concerning for colitis per abdominal CAT scan and possible sepsis w/ fever and sinus
tachycardia. No significant lactic acidosis or hypotension.
Acute colitis
Sepsis (leukocytosis tachycardia)
Acute Toxic Metabolic Encephalopathy
speech eval appreciated appropriate for regular diet
IVF support till oral intake improves
Follow blood cx's NGTD
ID eval appreciated
cont empiric IV Zosyn vanc as per ID
trend temp WBC
CT Head appreciated no acute abn's
IR eval appreciated planned for LP today
Systolic Murmur 3/6
ECHO appreciated EF 65-70% mild aortic stenosis mild mod MR
ECHO also noted mobile/aneurysmal interarterial septum with no evidence shunting, possible lipomatous hypertrophy, no further cardiac work up indicated as per discussion with Cardiology
Severe prostate hypertrophy progresses as noted on CT
Hx TURP follows Dr Mark najera
bladder scan prn
Likely CKD III
suspect baseline 1.2
cont monitoring renal function
Diabetes:
hold metformin
A1c 6.1 noted prediabetes level
consistently euglycemic with minimal need for insulin correction, ok to dc sliding scale and routine FS at this time
Constipation
Restless leg syndrome, pramipexole at bedtime
PT/OT appreciated SNF rehab
CODE STATUS full code
DVT prophylaxis heparin subcu
Discussed patient, patient's Armond, and patient's daughter Diego Weiss
I spent a total of 55 minutes with the patient or on the floor. More than 50% of this time involved counseling and coordination of care.
Anticipated Discharge: 24 - 48 hours
Subjective/Interval History
-
Date of Service: October 23, 2024
No acute distress, resting comfortably in bed. Improvement noted in mental status as per family at bedside ( Armond, daughter from [place] also notes that she was able to have better conversation with patient over phone). Denies current pain.
Constipation noted.
Objective Data
-
Labs:
Laboratory Results
10/23/24 10/23/24
08:04 10:29
WBC 7.7
Hgb 12.9 L
Hct 37.7 L
Plt Count 146
PT Pending
INR Pending
Sodium 136
Potassium 3.3 L
Chloride 106
Carbon Dioxide 25
BUN 13
Creatinine 1.2
Glucose 112 H
Calcium 7.9 L
Vital Signs:
Vital Signs
Temp Pulse Resp BP Pulse Ox
98.7 F 72 20 152/71 99
10/23/24 09:57 10/23/24 07:10 10/23/24 07:10 10/23/24 07:10 10/23/24 07:20
I&O
10/22/24 10/23/24 10/24/24
06:59 06:59 06:59
Intake Total 1000 / 1000 840 / 840
Output Total 30 / 30
Balance 999 / 999 810 / 810
[2024-10-23 11:10] LABS: INR 1.12; PT 14.7 Sec (11.4-14.6)
[2024-10-23 11:40] LABS: Glucose - Point of Care 158 mg/dl (70-99)
[2024-10-23] MEDS: NOVOLOG FLEXPEN-MODERATE RESISTANCE 1 UNITS SC (11:52)
[2024-10-23] MEDS: KCL 40 MEQ PO (12:43)
--- NOTE | 2024-10-23 14:38 | PHA.VAN.FU ---
Vancomycin Assessment / Plan
- Assessment
Renal Function: SCR Decreasing
WBC's are: WNL
In the past 24 hrs, patient has been: Febrile (100.4)
Concomitant Antimicrobials: Piperacillin/tazobactam
- Assessment - Therapeutic Drug Monitoring
Random Level: 7.2 - drawn approx 23 hours after vancomycin 1000mg dose
- Dosing Plan
Dosing by Level: Re-dose today (Will give a total of vancomycin 1500mg (split dose of 1000mg and 500mg) today.)
- Monitoring Plan
Random Level: 10/24 0600
- Follow Up
Pharmacy will continue to follow.
Vancomycin Follow UP
- -
Patient Age: 79
Patient Sex: Male
Vancomycin Day #: 3
Indication: Gi / Intra-Abdominal
Requesting Provider: Dr. Cruz
Pertinent Antimicrobial Allergies:
None
Height / Weight:
Height 5 ft 7 in
Actual Weight 59.109 kg
Pertinent Past Medical History: BMI: 20.3
- Vital Signs / Lab Results
Temp Pulse Resp BP Pulse Ox
98.6 F 80 18 143/66 98
10/23/24 11:13 10/23/24 11:13 10/23/24 11:13 10/23/24 11:13 10/23/24 11:13
Lab Results - Hematology
10/21/24 10/22/24 10/23/24
09: 07:12 08:04
WBC 8.1 10.2 7.7
Lab Results - Chemistry
10/21/24 10/22/24 10/23/24
09:16 07:12 08:04
BUN 35 H 20 13
Creatinine 1.4 H 1.3 1.2
Estimated Creat Clear 38 41
Albumin Cancelled
10/21/24 10/21/24
09:16 13:15
Lactic Acid 1.9 Cancelled
Microbiology Results
10/21/24 09:49 Blood Culture - Preliminary
Blood/Venous No Growth in 48 hours- Final report to follow
10/21/24 09:16 Blood Culture - Preliminary
Blood/Venous No Growth in 48 hours- Final report to follow
10/22/24 14:16 Nasal Screen MRSA (PCR) - Final
Nose MRSA not detected - performed by PCR methodology.
Therapeutic Drug Monitoring
Random Vancomycin 7.2 ug/ml 10/23/24 08:04
[2024-10-23] MEDS: VANCOCIN HCL 500 MG 100 IV (14:45)
[2024-10-23] MEDS: LIPITOR PO (16:37)
[2024-10-23 16:41] LABS: Glucose - Point of Care 120 mg/dl (70-99)
[2024-10-23 18:11] LABS: CSF Color Colorless
[2024-10-23 18:12] LABS: CSF Color Colorless; CSF Tube # Clarity Clear
[2024-10-23 18:15] LABS: Red Cell Count/CSF 285 mm^3
[2024-10-23 18:18] LABS: White Blood Cell Count/CSF 63 mm^3 (0-5)
[2024-10-23 18:19] LABS: Red Cell Count/CSF 1103 mm^3
[2024-10-23 20:06] LABS: White Cell Count/CSF 114 mm^3 (0-5)
[2024-10-23 20:12] LABS: CSF Granulocytes 22 %
[2024-10-23 20:13] LABS: Spinal Fluid Macrophages 9 %
[2024-10-23 20:49] LABS: Glucose - Point of Care 144 mg/dl (70-99)
[2024-10-23] MEDS: MIRAPEX 0.25 MG PO (23:43)
[2024-10-23] MEDS: ARICEPT 10 MG PO (23:43)
[2024-10-23] MEDS: SENOKOT-S 1 TABLET PO (23:43)
[2024-10-24] VITALS (7 sets, daily range): BP systolic 127–164; BP diastolic 70–86; PULSE 67–96; O2SAT 96–97
--- NOTE | 2024-10-24 02:00 | PTCARENOTE ---
Patient with a temp of 102.9 at 1907. Tylenol given at 1920; ice packs placed under armpits. Repeat temp at 2005 was 100.5. The bandaid on the LP site is saturated underneath but not leaking through. Dayshift nurse said he laid flat x 2 hours post
procedure. He complains of some pain in the R groin area, but is difficult to communicate with d/t being lethargic and drowsy which were sx MEDICAL CASE WORKER. INDUSTRIAL ECONOMICS TEACHER notified via TT. Patient afebrile remainder of shift.
Pt had a soft, loose BM while sitting on side of bed, which was unable to be collected for stool sample.
[2024-10-24] MEDS: ZOSYN 50 IV ×2 (02:17→07:39)
--- NOTE | 2024-10-24 04:00 | DOWNTIME ---
There was a [employer] Downtime on 10/24/2024 from 0100 to 10/24/2024 at 0215. Downtime documentation of patient's care, including medication administrations, has been reconciled in the electronic record per guidelines. Refer to the
patient's paper chart under the miscellaneous tab to see printed paper medication records and downtime forms.
[2024-10-24 06:47] LABS: Hematocrit 41.9 % (39.0-52.0); Hemoglobin 14.7 g/dL (13.0-18.0); Mean Corp Hgb Conc. 35.1 g/dL (33.0-37.0); Mean Corpuscular Volume 89.1 fL (80.0-94.0); Platelet Count 154 10^3/uL (130-400); Red Cell Dist. Width 11.6 % (11.5-14.5)
--- NOTE | 2024-10-24 07:28 | W.PN.HOSP.TC ---
Addendum entered and electronically signed by Zainab Mays MD 10/25/24 07:37:
Mild Hypokalemia repleted
Original Note:
Today's Communication/Plan
-
see a/p
Assessment / Plan
Assessment / Plan
Physical Exam
General: No pallor, cyanosis, or jaundice. Appears generally weak
HEENT: Normocephalic atraumatic moist mucus membranes
NECK: Supple. No JVD Carotid Bruits
RESPIRATORY: Lungs clear to auscultation. No crackles wheezes stridor
CVS: S1, S2 normal. RRR. systolic murmur /
ABDOMEN: Soft, non-tender. No distension. BS+/normal.
EXTREMITIES: No peripheral cyanosis or edema.
SKI GUIDE: Lethargic arousable oriented x 3 follows simple commands
Psych: calm
IMPRESSION:
79M hx HTN mild cognitive impairment (per discussion with Daughter MARCUS no diagnosis of Alzheimer Dementia, ruled out in outpt work up) baseline independent ADL's here for generalized weakness, AMS, and c/o abdominal discomfort and poor appetite.
Workup currently concerning for colitis per abdominal CAT scan and possible sepsis w/ fever and sinus tachycardia. No significant lactic acidosis or hypotension.
Acute Toxic Metabolic Encephalopathy most likely d/t Viral Encephalitis
Viral Sepsis (leukocytosis tachycardia)
speech eval appreciated appropriate for regular diet
IVF support till oral intake improves
Follow blood cx's NGTD
ID eval appreciated
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
empiric abx IV Zosyn vanc discontinued, monitor off abx
trend temp WBC
CT Head appreciated no acute abn's
Possible Acute Colitis as noted on CT
-reported Abd pain however since resolved
-no significant GI symptoms noted, tolerating diet
Systolic Murmur 3/6
ECHO appreciated EF 65-70% mild aortic stenosis mild mod MR
ECHO also noted mobile/aneurysmal interarterial septum with no evidence shunting, possible lipomatous hypertrophy, no further cardiac work up indicated as per discussion with Cardiology
Severe prostate hypertrophy progressed as noted on CT
Hx TURP follows Dr Flores outpt
bladder scan prn
no significiant urinary retention noted
Likely CKD III
suspect baseline 1.2
cont monitoring renal function
Diabetes:
hold metformin
A1c 6.1 noted prediabetes level
consistently euglycemic with minimal need for insulin correction, ok to dc sliding scale and routine FS at this time
Constipation
resolved
scheduled bowel regimen converted to prn
Restless leg syndrome
cont home bedtime pramipexole
Episode NSVT 17 beats 10/24/24
asymptomatic occurred while sleeping
EKG noted mild QTc prolongation 480s and nonspecific ST abn's
S1Q3T3 was also noted on EKG however pt consistently stable respiratory status on room air, non-tachy
Neg trop D-dimer and unremarkable BNP
Home Donepezil placed on hold for now d/t mild QT prolongation
Cardio eval Requested
repeat EKG in AM
PT/OT appreciated SNF rehab
CODE STATUS full code
DVT prophylaxis heparin subcu
Discussed with patient and patient's daughter POA Dr Diego Weiss
I spent a total of 50 minutes with the patient or on the floor. More than 50% of this time involved counseling and coordination of care.
Anticipated Discharge: 24 - 48 hours
Subjective/Interval History
-
Date of Service: October 24, 2024
No acuite distress, resting comfortably in bed. Remains lethargic but arousable oriented x3. Noted fever spike last night 102.9 since afebrile today. Constipation resolved
Objective Data
-
Labs:
Laboratory Results
10/24/24
06:10
WBC 7.3
Hgb 14.7
Hct 41.9
Plt Count 154
Sodium Pending
Potassium Pending
Chloride Pending
Carbon Dioxide Pending
BUN Pending
Creatinine Pending
Glucose Pending
Calcium Pending
Vital Signs:
Vital Signs
Temp Pulse Resp BP Pulse Ox
98.4 F 62 18 157/79 98
10/24/24 03:18 10/24/24 03:18 10/24/24 03:18 10/24/24 03:18 10/24/24 03:18
I&O
10/23/24 10/24/24 10/25/24
06:59 06:59 06:59
Intake Total 840 / 840 1420 / 1420
Output Total 30 / 30
Balance 810 / 810 1420 / 1420
[2024-10-24] MEDS: NORVASC 2.5 MG PO (07:40)
[2024-10-24 07:41] LABS: Glucose - Point of Care 109 mg/dl (70-99)
[2024-10-24] MEDS: NOVOLOG FLEXPEN-MODERATE RESISTANCE SC (07:41)
[2024-10-24] MEDS: COZAAR 100 MG PO (07:41)
[2024-10-24] MEDS: HEPARIN 5000 UNITS SC ×3 (07:41→23:39)
[2024-10-24] MEDS: SENOKOT-S PO (07:42)
--- NOTE | 2024-10-24 08:57 | PHA.VAN.FU ---
Vancomycin Assessment / Plan
- Assessment
Renal Function: SCR Decreasing
WBC's are: Stable
In the past 24 hrs, patient has been: Febrile
Concomitant Antimicrobials: Piperacillin/Tazobactam
- Assessment - Therapeutic Drug Monitoring
Random Level: 10/24 @0610 was 10 ~15 hours post last dose
- Dosing Plan
Dosing by Level: Re-dose today (Will give 750mg in am and another dose of 500mg at 1800 for a total dose of 1250mg)
- Monitoring Plan
Random Level: ordered for 10/25 with am labs
- Follow Up
Pharmacy will continue to follow.
Vancomycin Follow UP
- -
Patient Age: 79
Patient Sex: Male
Vancomycin Day #: 4
Indication: Gi / Intra-Abdominal
Requesting Provider: Dr. Cruz
Pertinent Antimicrobial Allergies:
None
Height / Weight:
Height 5 ft 7 in
Actual Weight 59.109 kg
Pertinent Past Medical History: BMI: 20.3
- Vital Signs / Lab Results
Temp Pulse Resp BP Pulse Ox
98.4 F 71 18 141/71 98
10/24/24 03:18 10/24/24 07:41 10/24/24 03:18 10/24/24 07:41 10/24/24 03:18
Lab Results - Hematology
10/21/24 10/22/24 10/23/24
09:16 07:12 08:04
WBC 8.1 10.2 7.7
10/24/24
06:10
WBC 7.3
Lab Results - Chemistry
10/21/24 10/22/24 10/23/24
09:16 07:12 08:04
BUN 35 H 20 13
Creatinine 1.4 H 1.3 1.2
Estimated Creat Clear 38 41
Albumin Cancelled
10/24/24
06:10
BUN Cancelled
Creatinine Cancelled
Estimated Creat Clear Cancelled
Albumin
10/21/24 10/21/24
09:16 13:15
Lactic Acid 1.9 Cancelled
Microbiology Results
10/23/24 16:15 Meningitis/Encephalitis Panel (PCR) - Final
Csf
10/23/24 16:15 Gram Stain - Preliminary
Csf
10/21/24 09:49 Blood Culture - Preliminary
Blood/Venous No Growth in 48 hours- Final report to follow
10/21/24 09:16 Blood Culture - Preliminary
Blood/Venous No Growth in 48 hours- Final report to follow
10/22/24 14:16 Nasal Screen MRSA (PCR) - Final
Nose MRSA not detected - performed by PCR methodology.
Therapeutic Drug Monitoring
Random Vancomycin 10.0 ug/ml 10/24/24 06:10
[2024-10-24] MEDS: VANCOCIN 150 IV (09:13)
[2024-10-24 09:42] LABS: Blood Urea Nitrogen 9 mg/dl (9-20); Calcium 8.7 mg/dl (8.4-10.2); Carbon Dioxide 26 mmol/L (22-30); Chloride 105 mmol/L (98-107); Estimated Creatinine Clearance 49 ml/min; Glucose 111 mg/dl (70-99); Magnesium 2.0 mg/dl (1.6-2.3); Potassium 3.5 mmol/L (3.5-5.1); Sodium 136 mmol/L (135-145); eGFR > 60.00
--- NOTE | 2024-10-24 10:08 | PN.CDI ---
CDI
- -
CDI:
Physician Documentation Request
Admit Date: 10/21/24 15:16
Dear Doctor Tabatha,
Patient admitted for sepsis.
Potassium level: 3.3
Potassium chloride 40 meq PO administered
Based on the above, could you clarify in the progress notes, the appropriate diagnosis, if significant, that supports the above abnormalities and additional evaluation, monitoring and/or treatment rendered:
Hypokalemia
Abnormal lab value insignificant
Other
Use of terms such as suspected, likely, concern for, or probable (associated with a specific diagnosis that is being evaluated, monitored, or treated as if it exists) are acceptable and can be coded in the inpatient setting, when documented at the
time of discharge.
Thank you,
Angi Quinonez RN, BSN
CDI Specialist
Available via [place] text
Please use your independent medical judgment in providing your response.
--- NOTE | 2024-10-24 11:08 | W.PN.ID1 ---
Date of Service
Date of Service: October 24, 2024
Today's Communication
Discontinue further Vanco and Zosyn.
Assessment / Plan
Acute encephalopathy of unclear etiology; ?infectious ?TME
- CSF suggestive of viral etiology
Fevers; ongoing
Normal white count with left shift
HTN
HLD
Alzheimer's disease
Restless leg syndrome
Mitral regurgitation
Recommendations:
CSF suggestive of viral etiology.
Discontinue further Zosyn and vancomycin
West Nile serology pending. Will check West Nile PCR also.
Check influenza
Trend white count and temperature curve.
Follow pending blood cultures
����������������������������������������������������������
Chief Complaint
-: Fever and Other (Encephalopathy)
Subjective / Review of Systems
Patient seen and examined. Family notes continued malaise and depressed mental status. Fever to 102.9 overnight.
Vital Signs / Physical Exam
Vital Signs
Vital Signs
Temp Pulse Resp BP Pulse Ox
99.7 F 63 18 153/76 97
10/24/24 07:00 10/24/24 07:00 10/24/24 07:00 10/24/24 07:41 10/24/24 07:00
Physical Exam
Constitutional: Comfortable, Chronically Ill and Non-toxic
Eyes: Sclera Anicteric
Cardiovascular: Regular Rate and S1/S2; Negative S3/S4
Pulmonary: Clear and Non Labored
Gastrointestinal: Non Distended, Normal Bowel Sounds and No Rebound
Extremities: Negative Edema, Cyanosis, Erythema, Splinter Hemorrhage, Venous Insufficiency or Janeway Lesions
Musculoskeletal: Negative Joint Swelling or Joint Effusion
Neurological: Other (Arousable to touch and voice.); Negative Meningeal Signs
Psychological: Calm
Objective Data
Lab Data
Lab Results
10/24/24 06:10
10/24/24 08:25
PT 14.7 Sec (11.4-14.6) H 10/23/24 10:29
INR 1.12 10/23/24 10:29
Estimated Creat Clear 49 ml/min 10/24/24 08:25
Lactic Acid Cancelled 10/21/24 13:15
Total Bilirubin Cancelled 10/21/24 09:16
AST Cancelled 10/21/24 09:16
ALT Cancelled 10/21/24 09:16
Alkaline Phosphatase Cancelled 10/21/24 09:16
Most recent labs reviewed.
Micro Results:
10/24/24 10:19 Salmonella/Shigella Culture - Pending
Feces/Stool Campylobacter Culture - Pending
Shiga Toxin Test - Pending
10/21/24 09:49 Blood Culture - Preliminary
Blood/Venous No Growth in 72 hours- Final report to follow
10/21/24 09:16 Blood Culture - Preliminary
Blood/Venous No Growth in 72 hours- Final report to follow
10/23/24 16:15 Meningitis/Encephalitis Panel (PCR) - Final
Csf
10/23/24 16:15 CSF Culture - Pending
Csf Gram Stain - Preliminary
10/22/24 14:16 Nasal Screen MRSA (PCR) - Final
Nose MRSA not detected - performed by PCR methodology.
Laboratory Tests
10/23/24 07/23/24
16:15
Tube #1 Tube #4
CSF Appearance Clear
CSF Color Colorless
CSF WBC 63 H* 114
CSF RBC 1103 285
CSF Cell Count Tube # 4
CSF Granulocytes 22
CSF Lymphocytes 69
CSF Macrophages 9
CSF Glucose 71 H
CSF Total Protein 103 H
Imaging:
10/21/2024 CT chest/abdomen/pelvis: no abnormal parenchymal pulmonary masses. No significant pulmonary parenchymal airspace disease. No pleural effusion. Liver, spleen, gallbladder and pancreas are unremarkable. Abdominal aorta is normal in
caliber. No significant abdominal lymphadenopathy noted. Moderate circumferential thickening of the distal sigmoid colon extends into the rectum. No free fluid. Urinary bladder is unremarkable.
Care Review
Plan reviewed with: Physician (Hospitalist)
--- NOTE | 2024-10-24 12:53 | CM ---
Chart reviewed. Discontinue further Vanco and Zosyn per ID
Therapy rec SNF at d/c
Spoke w/ patient's daughter, Diego, who is also POA. Diego shared patient is not able to d/c home and spouse is not able to fully support patient at this time. Diego would like to move forward w/ rehab at d/c. CM offered medicare.gov list to assist w/
exploring facilities, Diego was agreeable to CM providing list to her brother who is currently at the hospital.
CM met w/ patient's son, provided medicare.gov list. CM answered additional questions regarding rehab, home care services, DME.
Son informed CM of preferred facilities....[facility] and [facility]
CM placed referrals to the above facilities in [place]
Will need insurance auth prior to d/c
Plan: SNF
[2024-10-24] MEDS: NSS 1000 IV (14:25)
--- NOTE | 2024-10-24 17:13 | PTCARENOTE ---
Pt had 17 beat run of PVC's. Pt was sleeping and asymptomatic. Dr Mays made aware. Will monitor for now.
[2024-10-24] MEDS: LIPITOR 20 MG PO (18:25)
[2024-10-24 19:07] LABS: Troponin I 0.013 ng/ml
[2024-10-24 19:18] LABS: D-Dimer 0.28 ug/mlFEU (0.00-0.50)
[2024-10-24] MEDS: MIRAPEX 0.25 MG PO (23:39)
[2024-10-24] MEDS: MIRAPEX, GENERIC 1 MG PO (23:39)
[2024-10-25] VITALS (8 sets, daily range): BP systolic 105–175; BP diastolic 64–86; PULSE 59–60; O2SAT 98; BMI 20.4
[2024-10-25] MEDS: NSS 1000 IV ×2 (03:08→17:55)
--- NOTE | 2024-10-25 07:14 | W.PN.HOSP.TC ---
Today's Communication/Plan
-
tapered Pramipexole to 1 mg HS d/t concerns oversedation
cont IVF support pending improvement Oral intake/alertness
cont cardiac cath technologist
PT/OT
Assessment / Plan
Assessment / Plan
Physical Exam
General: No pallor, cyanosis, or jaundice. Appears generally weak
HEENT: Normocephalic atraumatic moist mucus membranes
NECK: Supple. No JVD Carotid Bruits
RESPIRATORY: Lungs clear to auscultation. No crackles wheezes stridor
CVS: S1, S2 normal. RRR. systolic murmur 3/
ABDOMEN: Soft, non-tender. No distension. BS+/normal.
EXTREMITIES: No peripheral cyanosis or edema.
LAV CREWMAN: Lethargic arousable follows simple commands (more lethargic and confused compared to yesterday- more difficult to arouse)
Psych: calm
IMPRESSION:
79M hx HTN mild cognitive impairment (per discussion with Daughter MARCUS no diagnosis of Alzheimer Dementia, ruled out in outpt work up) baseline independent ADL's here for generalized weakness, AMS, and c/o abdominal discomfort and poor appetite.
Workup currently concerning for colitis per abdominal CAT scan and possible sepsis w/ fever and sinus tachycardia. No significant lactic acidosis or hypotension.
Acute Toxic Metabolic Encephalopathy most likely d/t Viral Encephalitis
Viral Sepsis (leukocytosis tachycardia)
speech eval appreciated appropriate for regular diet
IVF support till oral intake improves
Follow blood cx's NGTD
ID eval appreciated
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
empiric abx IV Zosyn vanc discontinued, monitor off abx
trend temp WBC
CT Head appreciated no acute abn's
Later MRI Brain also noted no acute abn's (obtained d/t persistent AMS)
ABG unremarkable
Possible Acute Colitis as noted on CT
-reported Abd pain however since resolved
-no significant GI symptoms noted, tolerating diet
-possible colitis was present on admission since resolved
Systolic Murmur 04/12
ECHO appreciated EF 65-70% mild aortic stenosis mild mod MR
ECHO also noted mobile/aneurysmal interarterial septum with no evidence shunting, possible lipomatous hypertrophy, no further cardiac work up indicated as per discussion with Cardiology
Severe prostate hypertrophy progressed as noted on CT
Hx TURP follows Dr Flores outpt
bladder scan prn
no significiant urinary retention noted
Likely CKD III
suspect baseline 1.2
cont monitoring renal function
Diabetes:
hold metformin
A1c 6.1 noted prediabetes level
consistently euglycemic with minimal need for insulin correction, ok to dc sliding scale and routine FS at this time
Constipation
resolved
scheduled bowel regimen converted to prn
Restless leg syndrome
cont home bedtime pramipexole
Episode NSVT 17 beats 10/24/24
asymptomatic occurred while sleeping
EKG noted mild QTc prolongation 480s and nonspecific ST abn's
S1Q3T3 was also noted on EKG however pt consistently stable respiratory status on room air, non-tachy
Neg trop D-dimer and unremarkable BNP
Home Donepezil placed on hold for now d/t mild QT prolongation
Cardio eval appreciated no acute interventions or further inpt work up recommended, outpt follow up
New RBBB
cont monitoring on Tele for now
Mild Hypokalemia
monitor and replete as necessary
Restless leg syndrome
home pramipexole 1.25 mg HS resumed, however patient noted to be more sedated, since tapered to 1 mg HS
PT/OT appreciated SNF rehab
CODE STATUS full code
DVT prophylaxis heparin subcu
Discussed with patient, patient's daughter POA Dr Diego Weiss, son Jem, and pt's Armond
I spent a total of 45 minutes with the patient or on the floor. More than 50% of this time involved counseling and coordination of care.
Anticipated Discharge: 24 - 48 hours
Subjective/Interval History
-
Date of Service: October 25, 2024
Objective Data
-
Labs:
Laboratory Results
10/25/24
06:00
WBC Pending
Hgb Pending
Hct Pending
Plt Count Pending
Sodium Pending
Potassium Pending
Chloride Pending
Carbon Dioxide Pending
BUN Pending
Creatinine Pending
Glucose Pending
Calcium Pending
Total Bilirubin Pending
AST Pending
ALT Pending
Alkaline Phosphatase Pending
Vital Signs:
Vital Signs
Temp Pulse Resp BP Pulse Ox
98.4 F 59 20 134/75 94
10/25/24 03:36 10/25/24 03:36 10/25/24 03:36 10/25/24 03:36 10/25/24 03:36
I&O
10/24/24 10/25/24 10/26/24
06:59 06:59 06:59
Intake Total 1420 / 1420 1680 / 1680
Output Total 177 / 177
Balance 1420 / 1420 -95 / -95
[2024-10-25] MEDS: COZAAR 100 MG PO (07:30)
[2024-10-25] MEDS: NORVASC 2.5 MG PO (07:30)
[2024-10-25] MEDS: HEPARIN 5000 UNITS SC ×3 (07:30→23:04)
[2024-10-25] MEDS: NSS IV (07:33)
[2024-10-25 09:30] LABS: Hematocrit 37.9 % (39.0-52.0); Hemoglobin 13.1 g/dL (13.0-18.0); Mean Corp Hgb Conc. 34.6 g/dL (33.0-37.0); Mean Corpuscular Volume 87.9 fL (80.0-94.0); Platelet Count 164 10^3/uL (130-400); Red Cell Dist. Width 11.8 % (11.5-14.5)
--- NOTE | 2024-10-25 09:40 | CON.CAR ---
Consultation
Consultation Request
Date/Time Consultation Requested: October 24, 2024 6 PM
Date/Time Consultation Performed: October 25, 2024 9:40 AM
Requesting Provider: Hospitalist
Performing Provider: Hamlet Tate
Reason for Consultation: NSVT
Medical History
-
Chief Complaint: Weakness abdominal discomfort confusion
History of Present Illness:
79-year-old male with past medical history of hypertension, sleep apnea, dementia, and mitral regurgitation who is here for evaluation of generalized weakness and abdominal discomfort. Unfortunately, Bryan is unable to provide a full history and the
majority is obtained through chart review and talking with family. Prior to admission Bryan had been having generalized bodyaches with poor appetite, and abdominal pain and bloating. He also was noted to have a fever. He also seemed to have
worsening memory issues as well as weakness. For these reasons he was brought to the emergency room.
In the emergency room he was found to be febrile and tachycardic. He also found to have colitis on CT scan it is thought that he has a viral illness that is causing the symptoms. Through the course of his hospitalization he was noted to have an 11
beat run of NSVT.
In discussing with Bryan as well as his family he does not have any symptoms concerning for ischemia, heart failure, or arrhythmia at this time. He had an echocardiogram that showed some mild aortic stenosis.
Past Medical History
Past Medical History: Other (Hypertension Sleep anemia Seasonal allergy Restless leg syndrome Dementia Mild to moderate mitral regurgitation)
Past Surgical History: Other (TURP Cataract surgery)
Social History
Tobacco: Non-Smoker
Personal:
Living: With Family
Family History
Family History: Reviewed & Not Pertinent
Allergies / Home Medications
Allergy/AdvReac Type Severity Reaction Status Date / Time
pollen extracts Allergy SEASONAL-nasal Verified 10/24/24 17:13
congestion
�Medication �Instructions �Recorded �Confirmed �Type
losartan 100 mg tablet (Cozaar) 100 mg PO DAILY Blood pressure 02/13/21 10/21/24 History
simvastatin 40 mg tablet 40 mg PO QPM High cholesterol 02/13/21 10/21/24 History
amlodipine 2.5 mg tablet (Norvasc) 2.5 mg PO DAILY Blood Pressure 10/21/24 10/21/24 History
donepezil 10 mg tablet 10 mg PO HS Alzheimer's 10/21/24 10/21/24 History
metformin 500 mg tablet,extended 500 mg PO DAILY Diabetes 10/21/24 10/21/24 History
release 24 hr
pramipexole 0.25 mg tablet 1.25 mg PO HS Neurological 10/21/24 10/24/24 History
Condition
Review of Systems
-
All other systems: Negative unless noted
Physical Exam
Vital Signs
Temp Pulse Resp BP Pulse Ox
97.9 F 55 16 153/76 97
10/25/24 07:46 10/25/24 07:46 10/25/24 07:46 10/25/24 07:46 10/25/24 07:46
Lab Results
10/25/24 09:05
Troponin I 0.013 ng/ml 10/24/24 18:34
Dyn-L-Nayltcffsii Pept 556 pg/ml 10/24/24 18:34
Physical Exam
General: Well Developed, Well Nourished, No Apparent Distress and Other (tired appearing)
HEENT: Normocephalic
Respiratory: Clear and Non Labored Respirations
Cardiac: S1/S2, Regular Rhythm and Murmur
GI: Soft
Musculoskeletal: No Clubbing, No Cyanosis and No Edema
Skin: Warm and Dry
Neuro: Alert and Oriented
Psych: Calm and Confused
Impression / Plan
-
A/P: 79-year-old male with past medical history of hypertension, dementia, possibly diabetes who is here with a viral illness causing abdominal pain, fevers, and bodyaches. He was noted to have an 11 beat run of NSVT and mild aortic stenosis on
echocardiogram.
NSVT
- Likely a result of acute illness continue to monitor
- Patient has baseline bradycardia and we will hold off on beta-gregorio at this time
- Can consider outpatient stress testing for further evaluation
- monitor telemetry
Aortic stenosis
- Mild on echocardiogram monitor over time
Mild to moderate MR
Fevers weakness tiredness
- Per primary
Echocardiogram October 22 2024
SUMMARY
1. Normal left ventricular systolic function.
2. Estimated ejection fraction 65-70%.
3. Mild aortic stenosis with a peak gradient of 40 mmHg and a mean gradient of 20 mmHg.
4. Mild to moderate mitral regurgitation.
5. Mobile/aneurysmal intreratrial septum with no evidence of shunting by color-flow Doppler.
6. When compared to the previous report 10/08/2016 aortic stenosis is now reported. Mitral regurgitation mild to moderate rather than mild.
Data Reviewed
-
EKG: Tracing Personally Visualized and interpreted (sr)
Medical Tests (Nuc Med, Echo etc): Report Reviewed by me, Discussed with Physician, Discussed with Patient and Discussed with Family
Labs: Labs Reviewed by me
[2024-10-25 10:58] LABS: ALT (SGPT) 44 U/L (0-50); AST (SGOT) 57 U/L (17-59); Albumin 3.4 g/dl (3.5-5.0); Alkaline Phosphatase 48 U/L (38-126); Blood Urea Nitrogen 10 mg/dl (9-20); Calcium 8.6 mg/dl (8.4-10.2); Carbon Dioxide 23 mmol/L (22-30); Chloride 107 mmol/L (98-107); Estimated Creatinine Clearance 55 ml/min; Glucose 107 mg/dl (70-99); Magnesium 2.0 mg/dl (1.6-2.3); Potassium 3.5 mmol/L (3.5-5.1); Sodium 136 mmol/L (135-145); Total Protein 6.1 g/dl (6.3-8.2); eGFR > 60.00
--- NOTE | 2024-10-25 11:26 | W.PN.ID1 ---
Date of Service
Date of Service: October 25, 2024
Today's Communication
Observe off antibiotics. Continue supportive measures. Await pending serology.
Assessment / Plan
Acute encephalopathy of unclear etiology; ?infectious ?TME
- CSF suggestive of viral etiology
Fevers; ongoing
Normal white count with left shift
HTN
HLD
Alzheimer's disease
Restless leg syndrome
Mitral regurgitation
Recommendations:
CSF suggestive of viral etiology.
Antibiotics discontinued.
West Nile serology and PCR pending.
Influenza negative.
Trend white count and temperature curve.
Continue supportive measures.
����������������������������������������������������������
Chief Complaint
-: Fever and Other (Encephalopathy)
Subjective / Review of Systems
Patient seen and examined. Son reports the patient still remains quite lethargic. Overall temperature curve improved.
Vital Signs / Physical Exam
Vital Signs
Vital Signs
Temp Pulse Resp BP Pulse Ox
98.1 F 56 16 122/66 96
10/25/24 11:03 10/25/24 11:03 10/25/24 11:03 10/25/24 11:03 10/25/24 11:03
Physical Exam
Constitutional: Comfortable, Chronically Ill and Non-toxic
Eyes: Sclera Anicteric
Cardiovascular: Regular Rate and S1/S2; Negative S3/S4
Pulmonary: Clear and Non Labored
Gastrointestinal: Non Distended, Normal Bowel Sounds and No Rebound
Extremities: Negative Edema, Cyanosis, Erythema, Splinter Hemorrhage, Venous Insufficiency or Janeway Lesions
Musculoskeletal: Negative Joint Swelling or Joint Effusion
Neurological: Other (Arousable to touch and voice.); Negative Meningeal Signs
Psychological: Calm
Objective Data
Lab Data
Lab Results
10/25/24 09:05
10/25/24 09:05
PT 14.7 Sec (11.4-14.6) H 10/23/24 10:29
INR 1.12 10/23/24 10:29
Estimated Creat Clear 55 ml/min 10/25/24 09:05
Lactic Acid Cancelled 10/21/24 13:15
Total Bilirubin 1.3 mg/dl (0.2-1.3) 10/25/24 09:05
AST 57 U/L (17-59) 10/25/24 09:05
ALT 44 U/L (0-50) 10/25/24 09:05
Alkaline Phosphatase 48 U/L (38-126) 10/25/24 09:05
Most recent labs reviewed.
Micro Results:
10/21/24 09:49 Blood Culture - Preliminary
Blood/Venous No Growth in 4 days- Final report to follow
10/24/24 10:19 Salmonella/Shigella Culture - Pending
Feces/Stool Campylobacter Culture - Pending
Shiga Toxin Test - Final
No E. coli Shiga Toxin 1 or 2 detected.
10/21/24 09:16 Blood Culture - Preliminary
Blood/Venous No Growth in 4 days- Final report to follow
10/24/24 11:23 Influenza Types A & B (MICHELE) - Final
Nasal Swab Negative for Influenza A & B, NAAT
Negative results must be combined with clinical observations
and patient history.
Nucleic Acid Amplification test (NAAT)performed on the
[employer] platform.
10/23/24 16:15 CSF Culture - Preliminary
Csf No Growth After 18-24 Hours
Gram Stain - Preliminary
10/23/24 16:15 Meningitis/Encephalitis Panel (PCR) - Final
Csf
10/22/24 14:16 Nasal Screen MRSA (PCR) - Final
Nose MRSA not detected - performed by PCR methodology.
Laboratory Tests
10/23/24 07/23/24
16:15
Tube #1 Tube #4
CSF Appearance Clear
CSF Color Colorless
CSF WBC 63 H* 114
CSF RBC 1103 285
CSF Cell Count Tube # 4
CSF Granulocytes 22
CSF Lymphocytes 69
CSF Macrophages 9
CSF Glucose 71 H
CSF Total Protein 103 H
Meningitis Panel, CSF by PCR Final 10/23/24-1846
Escherichia coli K1 Not Detected
Haemophilus influenzae Not Detected
Listeria monocytogenes Not Detected
Neisseria meningitidis Not Detected
Cytomegalovirus (CMV) Not Detected
Streptococcus agalactiae Not Detected
Streptococcus pneumoniae Not Detected
Enterovirus Not Detected
Herpes simplex virus 1 Not Detected
Herpes simplex virus 2 Not Detected
Human herpesvirus 6 Not Detected
Human parechovirus Not Detected
Varicella zoster virus Not Detected
C. neoformans/gattii Not Detected
Imaging:
10/21/2024 CT chest/abdomen/pelvis: no abnormal parenchymal pulmonary masses. No significant pulmonary parenchymal airspace disease. No pleural effusion. Liver, spleen, gallbladder and pancreas are unremarkable. Abdominal aorta is normal in
caliber. No significant abdominal lymphadenopathy noted. Moderate circumferential thickening of the distal sigmoid colon extends into the rectum. No free fluid. Urinary bladder is unremarkable.
Care Review
Plan reviewed with: Physician (Hospitalist)
--- NOTE | 2024-10-25 11:42 | PN.CDI ---
CDI
- -
CDI:
Physician Documentation Request
Admit Date: 10/21/24 15:16
Dear Doctor Tabatha,
Patient admitted for altered mental status.
10/24 Hospitalist PN: 'Possible Acute Colitis as noted on CT -reported Abd pain however since resolved -no significant GI symptoms noted, tolerating diet'
Please clarify the following:
____ - Acute Colitis was present on admission and is now resolved.
____ - Acute Colitis was present on admission and is still being monitored, evaluated or treated
____ - Acute Colitis was ruled out
____ - Acute Colitis is still a likely, suspected, probable diagnosis
____ - Other
____ - Unable to determine
Use of terms such as suspected, likely, concern for, or probable (associated with a specific diagnosis that is being evaluated, monitored, or treated as if it exists) are acceptable and can be coded in the inpatient setting, when documented at the
time of discharge.
Thank you,
Angi Quinonez RN, BSN
CDI Specialist
Available via [employer] text
Please use your independent medical judgment in providing your response.
[2024-10-25 11:57] LABS: B.E. 2.1 mmol/L; HCO3 25.5 mmol/L (21-28); O2 Saturation % 95.9 % (94-98); PCO2 35 mmHg (35-48); PO2 79 mmHg (83-108)
[2024-10-25 11:59] LABS: O2 Therapy ROOM AIR
[2024-10-25] MEDS: LIPITOR 20 MG PO (17:16)
[2024-10-25] MEDS: MIRAPEX, GENERIC 1 MG PO (23:04)
[2024-10-26 02:11] LABS: C.neoformans Antigen Negative (Negative)
[2024-10-26 03:25] VITALS: BP 160/76
[2024-10-26 07:00] VITALS: BP 145/77
[2024-10-26] MEDS: HEPARIN 5000 UNITS SC ×3 (07:40→23:19)
[2024-10-26] MEDS: NORVASC 2.5 MG PO (07:40)
[2024-10-26] MEDS: COZAAR 100 MG PO (07:40)
--- NOTE | 2024-10-26 08:02 | W.PN.CD ---
Today's Communication / Plan
-
no additional cardiac recommendations
we will arrange for outpatient f/u and discuss outpatient stress testing at that time
please call us with additional questions
Impression / Plan
-
A/P: 79-year-old male with past medical history of hypertension, dementia, possibly diabetes who is here with a viral illness causing abdominal pain, fevers, and bodyaches. He was noted to have an 11 beat run of NSVT and mild aortic stenosis on
echocardiogram.
NSVT
-none in last 24 hrs; 11 beats on admission
- Likely a result of acute illness, fever
-LVEF is normal
- Patient has baseline bradycardia and we will hold off on beta-gregorio at this time
- will discuss outpatient stress testing for further evaluation
- monitor telemetry
Aortic stenosis
- Mild on echocardiogram monitor over time: outpt f/u
Mild to moderate MR
-outpt f/u
HTN
-chronic: continue amlodipine, losartan
RBBB
-new
Echocardiogram October 22 2024
SUMMARY
1. Normal left ventricular systolic function.
2. Estimated ejection fraction 65-70%.
3. Mild aortic stenosis with a peak gradient of 40 mmHg and a mean gradient of 20 mmHg.
4. Mild to moderate mitral regurgitation.
5. Mobile/aneurysmal intreratrial septum with no evidence of shunting by color-flow Doppler.
6. When compared to the previous report 10/08/2016 aortic stenosis is now reported. Mitral regurgitation mild to moderate rather than mild.
Physical Exam
Vital Signs/Labs
Vital Signs
Temp Pulse Resp BP Pulse Ox
98.3 F 68 20 145/77 98
10/26/24 07:00 10/26/24 07:40 10/26/24 07:00 10/26/24 07:40 10/26/24 07:45
PT 14.7 Sec (11.4-14.6) H 10/23/24 10:29
INR 1.12 10/23/24 10:29
Magnesium 2.0 mg/dl (1.6-2.3) 10/25/24 09:05
10/24/24
18:34
Tvi-N-Tjzdccureuo Pept 556
LAB Results
10/24/24
18:34
Troponin I 0.013
Physical Exam
Constitutional: No acute distress and Comfortable
EENT: Moist mucous membranes
Cardiovascular: Rhythm & rate is regular, Pedal edema is absent, JVD pressure is normal and Systolic murmur present
Respiratory: Respiratory effort normal and Lungs clear to auscul.
Data Reviewed
-
Date of Service: October 26, 2024
EKG: Other (Tele: NSR 60s, no arrhythmia in last 24 hrs)
Echo: Report Reviewed by me
--- NOTE | 2024-10-26 08:34 | W.PN.HOSP.TC ---
Today's Communication/Plan
-
dc IVF, monitor off
taper pramipexole to 0.75 mg d/t concerns oversedation
Assessment / Plan
Assessment / Plan
Physical Exam
General: No pallor, cyanosis, or jaundice. Appears generally weak
HEENT: Normocephalic atraumatic moist mucus membranes
NECK: Supple. No JVD Carotid Bruits
RESPIRATORY: Lungs clear to auscultation. No crackles wheezes stridor
CVS: S1, S2 normal. RRR. systolic murmur /
ABDOMEN: Soft, non-tender. No distension. BS+/normal.
EXTREMITIES: No peripheral cyanosis or edema.
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
Psych: calm
IMPRESSION:
79M hx HTN mild cognitive impairment (per discussion with Daughter MARCUS no diagnosis of Alzheimer Dementia, ruled out in outpt work up) baseline independent ADL's here for generalized weakness, AMS, and c/o abdominal discomfort and poor appetite.
Workup currently concerning for colitis per abdominal CAT scan and possible sepsis w/ fever and sinus tachycardia. No significant lactic acidosis or hypotension.
Acute Toxic Metabolic Encephalopathy most likely d/t Viral Encephalitis
Viral Sepsis (leukocytosis tachycardia)
speech eval appreciated appropriate for regular diet
IVF support till oral intake improves
Follow blood cx's NGTD
ID eval appreciated
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
empiric abx IV Zosyn vanc discontinued, monitor off abx
trend temp WBC
CT Head appreciated no acute abn's
Later MRI Brain also noted no acute abn's (obtained d/t persistent AMS)
ABG unremarkable
Possible Acute Colitis as noted on CT
-reported Abd pain however since resolved
-no significant GI symptoms noted, tolerating diet
-possible colitis was present on admission since resolved
Systolic Murmur 3/6
ECHO appreciated EF 65-70% mild aortic stenosis mild mod MR
ECHO also noted mobile/aneurysmal interarterial septum with no evidence shunting, possible lipomatous hypertrophy, no further cardiac work up indicated as per discussion with Cardiology
Severe prostate hypertrophy progressed as noted on CT
Hx TURP follows Dr Flores outpt
bladder scan prn
no significiant urinary retention noted
Likely CKD III
suspect baseline 1.2
cont monitoring renal function
Diabetes:
hold metformin
A1c 6.1 noted prediabetes level
consistently euglycemic with minimal need for insulin correction, ok to dc sliding scale and routine FS at this time
Constipation
resolved
scheduled bowel regimen converted to prn
Restless leg syndrome
cont home bedtime pramipexole
Episode NSVT 17 beats 10/24/24
asymptomatic occurred while sleeping
EKG noted mild QTc prolongation 480s and nonspecific ST abn's
S1Q3T3 was also noted on EKG however pt consistently stable respiratory status on room air, non-tachy
Neg trop D-dimer and unremarkable BNP
Home Donepezil placed on hold for now d/t mild QT prolongation
Cardio eval appreciated no acute interventions or further inpt work up recommended, outpt follow up
New RBBB
cont monitoring on Tele for now
Mild Hypokalemia
monitor and replete as necessary
Restless leg syndrome
home pramipexole 1.25 mg HS resumed, however patient noted to be more sedated, tapered to 0.75 mg HS due to concerns oversedation
PT/OT appreciated SNF rehab
CODE STATUS full code
DVT prophylaxis heparin subcu
Discussed with patient, patient's daughter POA Dr Diego Weiss, son Jem, and pt's Armond
I spent a total of 45 minutes with the patient or on the floor. More than 50% of this time involved counseling and coordination of care.
Anticipated Discharge: 24 - 48 hours
Subjective/Interval History
-
Date of Service: October 26, 2024
No acute distress, appears comfortable but sedated. Tolerating meals as per family at bedside.
Objective Data
-
Labs:
Laboratory Results
10/26/24
07:42
WBC Pending
Hgb Pending
Hct Pending
Plt Count Pending
Sodium Pending
Potassium Pending
Chloride Pending
Carbon Dioxide Pending
BUN Pending
Creatinine Pending
Glucose Pending
Calcium Pending
Vital Signs:
Vital Signs
Temp Pulse Resp BP Pulse Ox
98.3 F 68 20 145/77 98
10/26/24 07:00 10/26/24 07:40 10/26/24 07:00 10/26/24 07:40 10/26/24 07:45
I&O
10/25/24 10/26/24 10/27/24
06:59 06:59 06:59
Intake Total 1680 / 1680 1320 / 1320
Output Total 1775 / 1775 1600 / 1600
Balance -95 / -95 -280 / -280
[2024-10-26 08:46] LABS: Hematocrit 40.4 % (39.0-52.0); Hemoglobin 14.2 g/dL (13.0-18.0); Mean Corp Hgb Conc. 35.1 g/dL (33.0-37.0); Mean Corpuscular Volume 89.2 fL (80.0-94.0); Platelet Count 201 10^3/uL (130-400); Red Cell Dist. Width 11.9 % (11.5-14.5)
[2024-10-26 09:04] LABS: Blood Urea Nitrogen 12 mg/dl (9-20); Calcium 8.8 mg/dl (8.4-10.2); Carbon Dioxide 25 mmol/L (22-30); Chloride 107 mmol/L (98-107); Estimated Creatinine Clearance 62 ml/min; Glucose 100 mg/dl (70-99); Magnesium 2.1 mg/dl (1.6-2.3); Potassium 3.7 mmol/L (3.5-5.1); Sodium 137 mmol/L (135-145); eGFR > 60.00
[2024-10-26] MEDS: NSS 1000 IV (10:42)
[2024-10-26 11:00] VITALS: BP 132/65
--- NOTE | 2024-10-26 14:35 | W.PN.ID1 ---
Date of Service
Date of Service: October 26, 2024
Today's Communication
Continue supportive measures.
Assessment / Plan
Acute encephalopathy of unclear etiology; ?infectious ?TME
- CSF suggestive of viral etiology
Fevers; ongoing
Normal white count with left shift
HTN
HLD
Alzheimer's disease
Restless leg syndrome
Mitral regurgitation
Recommendations:
CSF suggestive of viral etiology.
Antibiotics previously discontinued.
West Nile serology and PCR pending. Will order a complete serum arbovirus panel
Influenza negative.
Trend white count and temperature curve.
Continue supportive measures.
Counseled family that given cognitive issues prior to onset of infection, recovery may be protracted.
����������������������������������������������������������
Chief Complaint
-: Fever and Other (Encephalopathy)
Subjective / Review of Systems
Patient seen and examined. Family feels he has not improving from a cognitive standpoint at this time.
Review of Systems: No Fever
Vital Signs / Physical Exam
Vital Signs
Vital Signs
Temp Pulse Resp BP Pulse Ox
97.9 F 61 18 132/65 98
10/26/24 11:00 10/26/24 11:00 10/26/24 11:00 10/26/24 11:00 10/26/24 11:00
Physical Exam
Constitutional: Comfortable, Chronically Ill and Non-toxic
Eyes: Sclera Anicteric
Pulmonary: Non Labored
Gastrointestinal: Non Distended
Extremities: Negative Edema, Cyanosis, Erythema, Splinter Hemorrhage, Venous Insufficiency or [place]ay Lesions
Musculoskeletal: Negative Joint Swelling or Joint Effusion
Skin: Negative Rash
Neurological: Other (Arousable to touch and voice.); Negative Meningeal Signs
Psychological: Calm
Objective Data
Lab Data
Lab Results
10/26/24 07:42
10/26/24 07:42
PT 14.7 Sec (11.4-14.6) H 10/23/24 10:29
INR 1.12 10/23/24 10:29
Estimated Creat Clear 62 ml/min 10/26/24 07:42
Lactic Acid Cancelled 10/21/24 13:15
Total Bilirubin 1.3 mg/dl (0.2-1.3) 10/25/24 09:05
AST 57 U/L (17-59) 10/25/24 09:05
ALT 44 U/L (0-50) 10/25/24 09:05
Alkaline Phosphatase 48 U/L (38-126) 10/25/24 09:05
Most recent labs reviewed.
Micro Results:
10/24/24 10:19 Salmonella/Shigella Culture - Final
Feces/Stool No Salmonella, Shigella, Aeromonas or Plesiomonas species
isolated.
Campylobacter Culture - Final
No Campylobacter species isolated.
Shiga Toxin Test - Final
No E. coli Shiga Toxin 1 or 2 detected.
10/21/24 09:49 Blood Culture - Final
Blood/Venous No Growth - Final Report
10/21/24 09:16 Blood Culture - Final
Blood/Venous No Growth - Final Report
10/23/24 16:15 CSF Culture - Preliminary
Csf No Growth After 72 Hours
Gram Stain - Preliminary
10/24/24 11:23 Influenza Types A & B (MICHELE) - Final
Nasal Swab Negative for Influenza A & B, NAAT
Negative results must be combined with clinical observations
and patient history.
Nucleic Acid Amplification test (NAAT)performed on the
[employer] platform.
10/23/24 16:15 Meningitis/Encephalitis Panel (PCR) - Final
Csf
10/22/24 14:16 Nasal Screen MRSA (PCR) - Final
Nose MRSA not detected - performed by PCR methodology.
Laboratory Tests
10/23/24 07/23/24
16:15
Tube #1 Tube #4
CSF Appearance Clear
CSF Color Colorless
CSF WBC 63 H* 114
CSF RBC 1103 285
CSF Cell Count Tube # 4
CSF Granulocytes 22
CSF Lymphocytes 69
CSF Macrophages 9
CSF Glucose 71 H
CSF Total Protein 103 H
Meningitis Panel, CSF by PCR Final 10/23/24-1845
Escherichia coli K1 Not Detected
Haemophilus influenzae Not Detected
Listeria monocytogenes Not Detected
Neisseria meningitidis Not Detected
Cytomegalovirus (CMV) Not Detected
Streptococcus agalactiae Not Detected
Streptococcus pneumoniae Not Detected
Enterovirus Not Detected
Herpes simplex virus 1 Not Detected
Herpes simplex virus 2 Not Detected
Human herpesvirus 6 Not Detected
Human parechovirus Not Detected
Varicella zoster virus Not Detected
C. neoformans/gattii Not Detected
Imaging:
10/21/2024 CT chest/abdomen/pelvis: no abnormal parenchymal pulmonary masses. No significant pulmonary parenchymal airspace disease. No pleural effusion. Liver, spleen, gallbladder and pancreas are unremarkable. Abdominal aorta is normal in
caliber. No significant abdominal lymphadenopathy noted. Moderate circumferential thickening of the distal sigmoid colon extends into the rectum. No free fluid. Urinary bladder is unremarkable.
[2024-10-26 15:00] VITALS: BP 135/85
[2024-10-26] MEDS: LIPITOR 20 MG PO (17:16)
[2024-10-26 18:06] LABS: West Nile Virus, IgM, CSF 6.97 IV (<=0.89)
[2024-10-26 19:27] VITALS: BP 160/81
[2024-10-26 20:17] LABS: CSF VDRL (T. pallidum) Non Reactive (Non Reactive)
[2024-10-26] MEDS: MIRAPEX 0.75 MG PO (22:11)
[2024-10-26 23:22] VITALS: BP 163/73
[2024-10-27 02:08] LABS: Lyme Disease DNA by PCR Not Detected; Lyme Source CSF
[2024-10-27 03:47] VITALS: BP 133/63
[2024-10-27] MEDS: NSS 1000 IV (04:35)
[2024-10-27 07:00] VITALS: BP 171/79
--- NOTE | 2024-10-27 07:41 | W.PN.HOSP.TC ---
Today's Communication/Plan
-
cont taper pramipexole to 0.5 mg HS
IVF completed, monitor off
PT/OT
Assessment / Plan
Assessment / Plan
Physical Exam
General: No pallor, cyanosis, or jaundice. Appears generally weak
HEENT: Normocephalic atraumatic moist mucus membranes
NECK: Supple. No JVD Carotid Bruits
RESPIRATORY: Lungs clear to auscultation. No crackles wheezes stridor
CVS: S1, S2 normal. RRR. systolic murmur /
ABDOMEN: Soft, non-tender. No distension. BS+/normal.
EXTREMITIES: No peripheral cyanosis or edema.
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
Psych: calm
IMPRESSION:
79M hx HTN mild cognitive impairment (per discussion with Daughter MARCUS no diagnosis of Alzheimer Dementia, ruled out in outpt work up) baseline independent ADL's here for generalized weakness, AMS, and c/o abdominal discomfort and poor appetite.
Workup currently concerning for colitis per abdominal CAT scan and possible sepsis w/ fever and sinus tachycardia. No significant lactic acidosis or hypotension.
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
Viral Sepsis (leukocytosis tachycardia)
speech eval appreciated appropriate for regular diet
tolerating diet, IVF completed
Follow blood cx's NGTD
ID eval appreciated
IR eval appreciated LP performed 10/24/24 CSF studies suggestive Viral Encephalitis, confirmed West Nile
empiric abx IV Zosyn vanc discontinued, monitor off abx
trend temp WBC
CT Head appreciated no acute abn's
Later MRI Brain also noted no acute abn's (obtained d/t persistent AMS)
ABG unremarkable
Possible Acute Colitis as noted on CT
-reported Abd pain however since resolved
-no significant GI symptoms noted, tolerating diet
-possible colitis was present on admission since resolved
Systolic Murmur 3/6
ECHO appreciated EF 65-70% mild aortic stenosis mild mod MR
ECHO also noted mobile/aneurysmal interarterial septum with no evidence shunting, possible lipomatous hypertrophy, no further cardiac work up indicated as per discussion with Cardiology
Severe prostate hypertrophy progressed as noted on CT
Hx TURP follows Dr Flores outpt
bladder scan prn
no significiant urinary retention noted
VIELKA resolved
less Likely CKD III
Cr high 1.4 since improved
Diabetes:
hold metformin
A1c 6.1 noted prediabetes level
consistently euglycemic with minimal need for insulin correction, ok to dc sliding scale and routine FS at this time
Constipation
resolved
scheduled bowel regimen converted to prn
Episode NSVT 17 beats 10/24/24
asymptomatic occurred while sleeping
EKG noted mild QTc prolongation 480s and nonspecific ST abn's
S1Q3T3 was also noted on EKG however pt consistently stable respiratory status on room air, non-tachy
Neg trop D-dimer and unremarkable BNP
Home Donepezil placed on hold for now d/t mild QT prolongation
Cardio eval appreciated no acute interventions or further inpt work up recommended, outpt follow up
QT prolongation since improved/resolved
New RBBB
cont monitoring on Tele for now
Mild Hypokalemia
monitor and replete as necessary
Restless leg syndrome
home pramipexole 1.25 mg HS resumed, however patient noted to be more sedated, tapered to 0.50 mg HS due to concerns oversedation, mental status since improved
PT/OT appreciated SNF rehab
CODE STATUS full code
DVT prophylaxis heparin subcu
Discussed with patient, patient's daughter POA Dr Diego Weiss, son Jem, and pt's Armond
I spent a total of 45 minutes with the patient or on the floor. More than 50% of this time involved counseling and coordination of care.
Anticipated Discharge: 24 - 48 hours
Subjective/Interval History
-
Date of Service: October 27, 2024
Sedation significantly improved as per family at bedside. Patient more alert conversant coherent today.
Objective Data
-
Labs:
Laboratory Results
10/27/24
06:00
WBC Pending
Hgb Pending
Hct Pending
Plt Count Pending
Sodium Pending
Potassium Pending
Chloride Pending
Carbon Dioxide Pending
BUN Pending
Creatinine Pending
Glucose Pending
Calcium Pending
Vital Signs:
Vital Signs
Temp Pulse Resp BP Pulse Ox
98.1 F 60 16 133/63 99
10/27/24 03:47 10/27/24 03:47 10/27/24 03:47 10/27/24 03:47 10/27/24 03:47
I&O
10/26/24 10/27/24 10/28/24
06:59 06:59 06:59
Intake Total 1320 / 1320 720 / 720
Output Total 1600 / 1600 1999 / 1999
Balance -280 / -280 -1999 / -1999 720 / 720
[2024-10-27] MEDS: HEPARIN 5000 UNITS SC ×3 (08:01→23:35)
[2024-10-27] MEDS: COZAAR 100 MG PO (08:01)
[2024-10-27] MEDS: NORVASC 2.5 MG PO (08:01)
[2024-10-27 08:33] LABS: Hematocrit 40.0 % (39.0-52.0); Hemoglobin 14.1 g/dL (13.0-18.0); Mean Corp Hgb Conc. 35.3 g/dL (33.0-37.0); Mean Corpuscular Volume 89.3 fL (80.0-94.0); Platelet Count 248 10^3/uL (130-400); Red Cell Dist. Width 11.9 % (11.5-14.5)
[2024-10-27 08:44] LABS: Blood Urea Nitrogen 17 mg/dl (9-20); Calcium 9.4 mg/dl (8.4-10.2); Carbon Dioxide 23 mmol/L (22-30); Chloride 112 mmol/L (98-107); Estimated Creatinine Clearance 49 ml/min; Glucose 114 mg/dl (70-99); Magnesium 2.2 mg/dl (1.6-2.3); Potassium 3.7 mmol/L (3.5-5.1); Sodium 142 mmol/L (135-145); eGFR > 60.00
[2024-10-27 11:00] VITALS: BP 151/75
--- NOTE | 2024-10-27 13:00 | W.PN.ID1 ---
Date of Service
Date of Service: October 27, 2024
Today's Communication
Continue with supportive therapy
Assessment / Plan
West Nile virus encephalitis
Fevers; resolved
Normal white count with left shift
Recommendations:
Continue with supportive measures. There is no specific therapy for West Nile virus.
Counseled family that given cognitive issues prior to onset of infection, recovery may be protracted.
Little more to offer from a Infectious Diseases standpoint.
Will see again at your request.
����������������������������������������������������������
Chief Complaint
-: Fever and Other (Encephalopathy)
Subjective / Review of Systems
Patient seen and examined. Family reports patient is slightly more awake and responsive today.
Review of Systems: No Fever
Vital Signs / Physical Exam
Vital Signs
Vital Signs
Temp Pulse Resp BP Pulse Ox
97.6 F 68 20 151/75 98
10/27/24 11:00 10/27/24 11:00 10/27/24 11:00 10/27/24 11:00 10/27/24 11:00
Physical Exam
Constitutional: Chronically Ill and Non-toxic
Gastrointestinal: Non Distended
Neurological: Other (Arousable to voice and touch.)
Psychological: Calm
Objective Data
Lab Data
Lab Results
10/27/24 07:50
10/27/24 07:50
PT 14.7 Sec (11.4-14.6) H 10/23/24 10:29
INR 1.12 10/23/24 10:29
Estimated Creat Clear 49 ml/min 10/27/24 07:50
Lactic Acid Cancelled 10/21/24 13:15
Total Bilirubin 1.3 mg/dl (0.2-1.3) 10/25/24 09:05
AST 57 U/L (17-59) 10/25/24 09:05
ALT 44 U/L (0-50) 10/25/24 09:05
Alkaline Phosphatase 48 U/L (38-126) 10/25/24 09:05
Most recent labs reviewed.
Micro Results:
10/23/24 16:15 CSF Culture - Preliminary
Csf No Growth After 4 Days
Gram Stain - Preliminary
10/24/24 10:19 Salmonella/Shigella Culture - Final
Feces/Stool No Salmonella, Shigella, Aeromonas or Plesiomonas species
isolated.
Campylobacter Culture - Final
No Campylobacter species isolated.
Shiga Toxin Test - Final
No E. coli Shiga Toxin 1 or 2 detected.
10/21/24 09:49 Blood Culture - Final
Blood/Venous No Growth - Final Report
10/21/24 09:16 Blood Culture - Final
Blood/Venous No Growth - Final Report
10/24/24 11:23 Influenza Types A & B (MICHELE) - Final
Nasal Swab Negative for Influenza A & B, NAAT
Negative results must be combined with clinical observations
and patient history.
Nucleic Acid Amplification test (NAAT)performed on the
[employer] platform.
10/23/24 16:15 Meningitis/Encephalitis Panel (PCR) - Final
Csf
10/22/24 14:16 Nasal Screen MRSA (PCR) - Final
Nose MRSA not detected - performed by PCR methodology.
Laboratory Tests
10/23/24 07/23/24
16:15
Tube #1 Tube #4
CSF Appearance Clear
CSF Color Colorless
CSF WBC 63 H* 114
CSF RBC 1103 285
CSF Cell Count Tube # 4
CSF Granulocytes 22
CSF Lymphocytes 69
CSF Macrophages 9
CSF Glucose 71 H
CSF Total Protein 103 H
Meningitis Panel, CSF by PCR Final 10/23/24-1846
Escherichia coli K1 Not Detected
Haemophilus influenzae Not Detected
Listeria monocytogenes Not Detected
Neisseria meningitidis Not Detected
Cytomegalovirus (CMV) Not Detected
Streptococcus agalactiae Not Detected
Streptococcus pneumoniae Not Detected
Enterovirus Not Detected
Herpes simplex virus 1 Not Detected
Herpes simplex virus 2 Not Detected
Human herpesvirus 6 Not Detected
Human parechovirus Not Detected
Varicella zoster virus Not Detected
C. neoformans/gattii Not Detected
West Nile CSF - - -
West Nile CSF - 6.97 - H - <=0.89 IV
- POSITIVE
- Specimen is repeatedly POSITIVE for anti-West Nile virus,
- IgM using the [employer] assay. A false
- positive rate of 2-3% has been demonstrated with the [employer] CLEMENT[employer] assay.
- Repeated and verified.
Imaging:
10/21/2024 CT chest/abdomen/pelvis: no abnormal parenchymal pulmonary masses. No significant pulmonary parenchymal airspace disease. No pleural effusion. Liver, spleen, gallbladder and pancreas are unremarkable. Abdominal aorta is normal in
caliber. No significant abdominal lymphadenopathy noted. Moderate circumferential thickening of the distal sigmoid colon extends into the rectum. No free fluid. Urinary bladder is unremarkable.
Care Review
Plan reviewed with: Physician (Hospitalist)
--- NOTE | 2024-10-27 13:03 | W.PN.UPDATE ---
Update Note
Progress Note Update
confirmed with daughter POA Dr Diego Weiss patient DNR/DNI. Code status updated accordingly
[2024-10-27 15:00] VITALS: BP 139/69
[2024-10-27] MEDS: LIPITOR 20 MG PO (17:21)
[2024-10-27 19:24] VITALS: BP 162/82
[2024-10-27] MEDS: MIRAPEX 0.5 MG PO (22:05)
[2024-10-27 23:18] VITALS: BP 176/76
[2024-10-28] VITALS (7 sets, daily range): BP systolic 81–179; BP diastolic 54–97; PULSE 73–93
[2024-10-28] MEDS: HEPARIN 5000 UNITS SC ×3 (07:47→23:08)
[2024-10-28] MEDS: NORVASC 2.5 MG PO (07:48)
[2024-10-28] MEDS: COZAAR 100 MG PO (07:48)
--- NOTE | 2024-10-28 07:52 | W.PN.HOSP.TC ---
Today's Communication/Plan
-
Ok to dc hall monitor, monitor off, routine labs discontinued
Pramipexole tapered to 0.25 mg HS
Home Donepezil resumed but reduced dose 5 mg HS to minimize sedation
PT/OT
Abd binder and TEDs, once IVF bolus d/t orthostatic hypotension
discharge planning SNF rehab
Assessment / Plan
Assessment / Plan
Physical Exam
General: No pallor, cyanosis, or jaundice. Appears generally weak
HEENT: Normocephalic atraumatic moist mucus membranes
NECK: Supple. No JVD Carotid Bruits
RESPIRATORY: Lungs clear to auscultation. No crackles wheezes stridor
CVS: S1, S2 normal. RRR. systolic murmur 3/6
ABDOMEN: Soft, non-tender. No distension. BS+/normal.
EXTREMITIES: No peripheral cyanosis or edema.
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
Psych: calm
IMPRESSION:
79M hx HTN mild cognitive impairment (per discussion with Daughter MARCUS no diagnosis of Alzheimer Dementia, ruled out in outpt work up) baseline independent ADL's here for generalized weakness, AMS, and c/o abdominal discomfort and poor appetite.
Workup currently concerning for colitis per abdominal CAT scan and possible sepsis w/ fever and sinus tachycardia. No significant lactic acidosis or hypotension.
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
Viral Sepsis (Fever tachycardia- correction to prior documentation, no significant leukocytosis was noted during stay)
speech eval appreciated appropriate for regular diet
tolerating diet, IVF completed
Follow blood cx's NGTD
ID eval appreciated
IR eval appreciated LP performed 10/24/24 CSF studies suggestive Viral Encephalitis, confirmed West Nile
empiric abx IV Zosyn vanc discontinued
CT Head appreciated no acute abn's
Later MRI Brain also noted no acute abn's (obtained d/t persistent AMS)
ABG unremarkable
Possible Acute Colitis as noted on CT
-reported Abd pain however since resolved
-no significant GI symptoms noted, tolerating diet
-possible colitis was present on admission since resolved
Systolic Murmur 04/12
ECHO appreciated EF 65-70% mild aortic stenosis mild mod MR
ECHO also noted mobile/aneurysmal interarterial septum with no evidence shunting, possible lipomatous hypertrophy, no further cardiac work up indicated as per discussion with Cardiology
Severe prostate hypertrophy progressed as noted on CT
Hx TURP follows Dr Flores outpt
bladder scan prn
no significant urinary retention noted
outpt follow up with urology recommended
VIELKA resolved
less Likely CKD III
Cr high 1.4 since improved
Diabetes:
hold metformin, dc on discharge, not indicated with prediabetes and weight wnl
A1c 6.1 noted prediabetes level
consistently euglycemic with minimal need for insulin correction, ok to dc sliding scale and routine FS at this time
Constipation
resolved
scheduled bowel regimen converted to prn
Episode NSVT 17 beats 10/24/24
asymptomatic occurred while sleeping
EKG noted mild QTc prolongation 480s and nonspecific ST abn's
S1Q3T3 was also noted on EKG however pt consistently stable respiratory status on room air, non-tachy
Neg trop D-dimer and unremarkable BNP
Home Donepezil placed on hold for now d/t mild QT prolongation
Cardio eval appreciated no acute interventions or further inpt work up recommended, outpt follow up
QT prolongation since improved/resolved
New RBBB
Mild Hypokalemia
Repleted, resolved
Restless leg syndrome
home pramipexole 1.25 mg HS resumed, however patient noted to be more sedated, tapered to 0.25 mg HS due to concerns oversedation, mental status since improved
HTN
Orthostatic Hypotension
cont home Amlodipine 2.5 mg daily, would not treat HTN aggressively given elderly, risk of falls, and significant orthostatic hypotension
ABd binder TEds
monitor orthostatic vitals
Hx Mild Cognitive Impairment
Donepezil held d/t QT prolongation since improved/resolved, resumed at reduced dose 5 mg HS to minimize sedation
PT/OT appreciated SNF rehab
CODE STATUS full code
DVT prophylaxis heparin subcu
Ok to dc hall monitor, monitor off, routine labs discontinued
Discussed with patient, patient's daughter POA Dr Diego Weiss, son Jem, and pt's Armond
I spent a total of 45 minutes with the patient or on the floor. More than 50% of this time involved counseling and coordination of care.
Anticipated Discharge: 24 - 48 hours
Subjective/Interval History
-
Date of Service: October 28, 2024
Daytime sedation improved though not resolved. Armond present during evaluation
Objective Data
-
Labs:
Laboratory Results
10/28/24
06:00
WBC Pending
Hgb Pending
Hct Pending
Plt Count Pending
Sodium Pending
Potassium Pending
Chloride Pending
Carbon Dioxide Pending
BUN Pending
Creatinine Pending
Glucose Pending
Calcium Pending
Vital Signs:
Vital Signs
Temp Pulse Resp BP Pulse Ox
98.7 F 62 17 151/70 98
10/28/24 03:18 10/28/24 03:18 10/28/24 03:18 10/28/24 03:18 10/28/24 03:18
I&O
10/27/24 10/28/24 10/29/24
06:59 06:59 06:59
Intake Total 1420 / 1420
Output Total 1999 1650 / 1650
Balance -1999 / -1999 -230 / -230
[2024-10-28 08:41] LABS: Hematocrit 40.1 % (39.0-52.0); Hemoglobin 14.2 g/dL (13.0-18.0); Mean Corp Hgb Conc. 35.4 g/dL (33.0-37.0); Mean Corpuscular Volume 88.5 fL (80.0-94.0); Platelet Count 206 10^3/uL (130-400); Red Cell Dist. Width 12.0 % (11.5-14.5)
[2024-10-28 10:18] LABS: Blood Urea Nitrogen 17 mg/dl (9-20); Calcium 9.6 mg/dl (8.4-10.2); Carbon Dioxide 24 mmol/L (22-30); Chloride 108 mmol/L (98-107); Estimated Creatinine Clearance 49 ml/min; Glucose 195 mg/dl (70-99); Magnesium 2.1 mg/dl (1.6-2.3); Potassium 3.6 mmol/L (3.5-5.1); Sodium 139 mmol/L (135-145); eGFR > 60.00
--- NOTE | 2024-10-28 11:03 | CM ---
CM met with pt's daughter who requests referrals be sent to [facility]. Will do so now via [email or web address]. Explained more likely to get a response back tomorrow/Tuesday.
--- NOTE | 2024-10-28 15:36 | PTCARENOTE ---
Dr Mays aware of orthostatic vital signs as charted. he ordered a 500ml nss bolus. maggie stockings and abdominal binder to be applied.
[2024-10-28] MEDS: NSS 500 IV (15:40)
[2024-10-28] MEDS: LIPITOR 20 MG PO (17:29)
[2024-10-28] MEDS: MIRAPEX 0.25 MG PO (22:17)
[2024-10-28] MEDS: ARICEPT 5 MG PO (22:17)
[2024-10-29] VITALS (7 sets, daily range): BP systolic 110–169; BP diastolic 66–90; PULSE 69–96; O2SAT 97
[2024-10-29] MEDS: NORVASC 2.5 MG PO (08:28)
[2024-10-29] MEDS: HEPARIN 5000 UNITS SC ×2 (08:28→17:50)
[2024-10-29] MEDS: COZAAR 100 MG PO (08:28)
--- NOTE | 2024-10-29 11:22 | CM ---
Chart reviewed. Plan is for SNF at d/c. Referrals prev completed with a few accepting facilities. Per hospitalist, supportive care at this time and awaiting rehab placement. CM spoke w/ patient's daughter, Diego Isela, speakerphone w/ spouse. CM
reviewed accepting facilities. Per Dr. Weiss, family no longer considering [facility] as patient's spouse there. Dr. Weiss shared that [facility] would be the preferred and [facility] would be the second option. CM informed Dr. Weiss that [facility]
possibly is considering acceptance as they inquired on patient's readiness to d/c. [facility] accepted as well.
CM left message w/ [facility] to inquire about bed availability
Plan: SNF once facility is confirmed and auth is obtained
--- NOTE | 2024-10-29 13:06 | W.PN.HOSP.TC ---
Today's Communication/Plan
-
Assessment / Plan
Assessment / Plan
Physical Exam
General: No pallor, cyanosis, or jaundice. Appears generally weak
HEENT: Normocephalic atraumatic moist mucus membranes
NECK: Supple. No JVD Carotid Bruits
RESPIRATORY: Lungs clear to auscultation. No crackles wheezes stridor
CVS: S1, S2 normal. Regular rhythm, controlled heart rate. systolic murmur 04/12
ABDOMEN: Soft, non-tender. No distension. BS+/normal.
EXTREMITIES: No peripheral cyanosis or edema.
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
Psych: calm and cooperative
IMPRESSION:
79M hx HTN mild cognitive impairment (per discussion with Daughter MARCUS no diagnosis of Alzheimer Dementia, ruled out in outpt work up) baseline independent ADL's here for generalized weakness, AMS, and c/o abdominal discomfort and poor appetite.
Workup currently concerning for colitis per abdominal CAT scan and possible sepsis w/ fever and sinus tachycardia. No significant lactic acidosis or hypotension.
Sepsis secondary to acute viral illness, acute Toxic Metabolic Encephalopathy:
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
- Continue supportive care
- Antibiotics discontinued
- Blood cultures no growth to date
- No acute intracranial abnormalities on brain imaging including MRI
- Tolerating regular diet
- Anticipate ongoing gradual recovery
- Awaiting SNF placement
Possible Acute Colitis as noted on CT
-reported Abd pain however since resolved
-no significant GI symptoms noted, tolerating diet
-possible colitis was present on admission since resolved
Systolic Murmur 04/12
ECHO appreciated EF 65-70% mild aortic stenosis mild mod MR
ECHO also noted mobile/aneurysmal interarterial septum with no evidence shunting, possible lipomatous hypertrophy, no further cardiac work up indicated as per discussion with Cardiology
Severe prostate hypertrophy progressed as noted on CT
Hx TURP follows Dr Flores outpt
bladder scan prn
no significant urinary retention noted
outpt follow up with urology recommended
VIELKA:
- Resolved
Diabetes:
hold metformin, dc on discharge, not indicated with prediabetes and weight wnl
A1c 6.1 noted prediabetes level
consistently euglycemic with minimal need for insulin correction, ok to dc sliding scale and routine FS at this time
Constipation
resolved
scheduled bowel regimen converted to prn
Episode NSVT 17 beats 10/24/24
asymptomatic occurred while sleeping
EKG noted mild QTc prolongation 480s and nonspecific ST abn's
S1Q3T3 was also noted on EKG however pt consistently stable respiratory status on room air, non-tachy
Neg trop D-dimer and unremarkable BNP
Home Donepezil placed on hold briefly d/t mild QT prolongation, have since resumed donepezil reduced dose of 5 mg at night
Cardio eval appreciated no acute interventions or further inpt work up recommended, outpt follow up
QT prolongation since improved/resolved
New RBBB
Mild Hypokalemia
Repleted, resolved
Restless leg syndrome
home pramipexole 1.25 mg HS resumed, however patient noted to be more sedated, tapered to 0.25 mg HS due to concerns oversedation, mental status since improved
HTN
Orthostatic Hypotension
- cont home Amlodipine 2.5 mg daily, reduce home losartan from 100 mg daily to 50 mg daily
- Caution against aggressively treating HTN given elderly, risk of falls, and significant orthostatic hypotension
- ABd binder TEds
- monitor orthostatic vitals
Hx Mild Cognitive Impairment
Donepezil held d/t QT prolongation since improved/resolved, resumed at reduced dose 5 mg HS to minimize sedation
PT/OT appreciated SNF rehab
CODE STATUS DNR
DVT prophylaxis heparin subcu
Ok to dc playground monitor, monitor off, routine labs discontinued
Discussed with patient, patient's daughter POA Dr Diego Weiss, son Jem, and pt's Armond
I spent a total of 47 minutes with the patient or on the floor. More than 50% of this time involved counseling and coordination of care.
Anticipated Discharge: 24 - 48 hours
Subjective/Interval History
-
Date of Service: October 29, 2024
Patient was seen and examined at bedside this morning. Remains somnolent but arousable to voice. 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 Overall appears to be clinically improving.
Objective Data
-
Vital Signs:
Vital Signs
Temp Pulse Resp BP Pulse Ox
98.5 F 66 16 162/90 99
10/29/24 07:15 10/29/24 07:15 10/29/24 07:15 10/29/24 07:15 10/29/24 07:15
I&O
10/28/24 10/29/24 10/30/24
06:59 06:59 06:59
Intake Total 1420 / 1420 400 / 400
Output Total 1650 / 1650 1450 / 1450
Balance -230 / -230 -1050 / -1050
Review of Systems
-
History Source: Patient
All other systems: Reviewed and negative
Constitutional: Reports Fatigue and Weakness
Physical Exam
-
General: No Apparent Distress
[2024-10-29] MEDS: LIPITOR 20 MG PO (18:09)
[2024-10-29] MEDS: ARICEPT 5 MG PO (22:19)
[2024-10-29] MEDS: MIRAPEX 0.25 MG PO (22:20)
[2024-10-30] MEDS: HEPARIN 5000 UNITS SC ×2 (00:03→08:20)
[2024-10-30 07:10] VITALS: BP 168/89
[2024-10-30] MEDS: NORVASC 2.5 MG PO (08:23)
[2024-10-30] MEDS: COZAAR 50 MG PO (08:23)
[2024-10-30 11:02] VITALS: BP 116/53; BP 149/79; BP 98/67; PULSE 72; PULSE 76; PULSE 81
--- NOTE | 2024-10-30 11:55 | CM ---
Addendum entered by Audie Rajan 10/30/24 12:30:
Updated info:
Report: [phone] (4th Floor)

Original Note:
CM spoke w/ [facility] admissions to inquire about bed availability for patient today. Bed is available for patient. Spoke w/ patient's daughter, Dr. Weiss, informed her that [facility] does not have any male beds but [facility] does have a bed, Dr. Weiss
agreeable to move forward w/ [facility].
CM called [facility] to obtain auth. Auth approved beginning today w/ next review date of 11/05.
Approved ref # [id number]
Ambulance auth approved. Ref # [id number]. Transport forms on chart
Updated Dr. Weiss. IMM verbally reviewed, copy on chart
Updated [facility] w/ auth information
Updated hospitalist
[facility]
Report: [phone] (3rd Floor)

Plan: D/C today [facility]
--- NOTE | 2024-10-30 12:17 | W.DCSUMMARY ---
Discharge Summary
Discharge Data
Date of Admission: 10/21/24
Date of Discharge: 10/30/24
Total time spent discharging patient (in min): 55
-
Pending Results: No
Hospital Course
Mr. Weiss is an 79-year-old male with a medical history of hypertension, enlarged prostate (status post TURP), restless leg syndrome, and mild cognitive impairment (no diagnosis of Alzheimer's dementia per family, independent ADLs at baseline) who
presented with generalized weakness and encephalopathy. He was initially febrile but without leukocytosis. He was started on broad-spectrum antibiotics. He complained of some vague abdominal pain and CT imaging showed possible colitis. However,
he was found to have West Nile viral encephalitis based on serologies and lumbar puncture with CSF studies. Antibiotics were discontinued and he was treated supportively. His fevers ceased after 10/23/2024. His abdominal discomfort resolved. He
was evaluated by physical and Occupational Therapy who recommended rehab at a [facility] facility after hospital discharge so he could regain his strength.
He had a short episode of nonsustained ventricular tachycardia early in his admission noted on telemetry, however patient remained asymptomatic. This was likely due to his febrile illness. Echocardiogram showed mild aortic stenosis and mild to
moderate mitral regurgitation, also a mobile/aneurysmal intra-atrial septum with no evidence of shunting. He was evaluated by cardiology who recommended outpatient follow-up for further workup after he has recovered from his viral encephalitis.
His home antihypertensive regimen was adjusted to a lower dosage in order to avoid symptomatic orthostatic hypotension. He should continue using an abdominal binder and compression stockings. He will need ongoing blood pressure monitoring and
adjustments to his antihypertensive regimen as needed. He had been on low-dose metformin as an outpatient which has been discontinued to avoid hypoglycemia in the elderly especially considering he has a hemoglobin A1c of 6.1% and has remained
euglycemic during this admission. His home donepezil dose was decreased to 5 mg at night due to mild QT prolongation noted on telemetry. His home dose of pramipexole which he uses for restless leg syndrome was decreased to 0.25 mg at night in
order to avoid oversedation.
He has clinically improved significantly throughout his hospitalization. He will need ongoing rehab at a [facility] facility after hospital discharge. He will need close follow-up with his primary care physician and with cardiology after
hospital discharge. At the time of hospital discharge he was medically stable.
Physical Exam
General: Awake and alert
HEENT: Normocephalic atraumatic moist mucus membranes
NECK: Supple. No JVD Carotid Bruits
RESPIRATORY: Lungs clear to auscultation. No crackles wheezes stridor
CVS: S1, S2 normal. Regular rhythm, controlled heart rate. systolic murmur 04/12
ABDOMEN: Soft, non-tender. No distension. BS+/normal.
EXTREMITIES: No peripheral cyanosis or edema.
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
Psych: calm and cooperative
Discharge Plan
-
Patient Disposition: Penitentiary/SNF
Discharge Diagnosis/Procedures: West Nile virus encephalitis
Activity: As tolerated
Other Services: PT and OT
Activity Restrictions/Additional Instructions:
Metformin not indicated at this time A1c 6.1 (Prediabetes with BMI in normal range). Discontinued
Mr. Weiss is an 79-year-old male with a medical history of hypertension, enlarged prostate (status post TURP), restless leg syndrome, and mild cognitive impairment (no diagnosis of Alzheimer's dementia per family, independent ADLs at baseline) who
presented with generalized weakness and encephalopathy. He was initially febrile but without leukocytosis. He was started on broad-spectrum antibiotics. He complained of some vague abdominal pain and CT imaging showed possible colitis. However,
he was found to have [place] viral encephalitis based on serologies and lumbar puncture with CSF studies. Antibiotics were discontinued and he was treated supportively. His fevers ceased after 10/23/2024. His abdominal discomfort resolved. He
was evaluated by physical and Occupational Therapy who recommended rehab at a [facility] facility after hospital discharge so he could regain his strength.
He had a short episode of nonsustained ventricular tachycardia early in his admission noted on telemetry, however patient remained asymptomatic. This was likely due to his febrile illness. Echocardiogram showed mild aortic stenosis and mild to
moderate mitral regurgitation, also a mobile/aneurysmal intra-atrial septum with no evidence of shunting. He was evaluated by cardiology who recommended outpatient follow-up for further workup after he has recovered from his viral encephalitis.
His home antihypertensive regimen was adjusted to a lower dosage in order to avoid symptomatic orthostatic hypotension. He should continue using an abdominal binder and compression stockings. He will need ongoing blood pressure monitoring and
adjustments to his antihypertensive regimen as needed. He had been on low-dose metformin as an outpatient which has been discontinued to avoid hypoglycemia in the elderly especially considering he has a hemoglobin A1c of 6.1% and has remained
euglycemic during this admission. His home donepezil dose was decreased to 5 mg at night due to mild QT prolongation noted on telemetry. His home dose of pramipexole which he uses for restless leg syndrome was decreased to 0.25 mg at night in
order to avoid oversedation.
He has clinically improved significantly throughout his hospitalization. He will need ongoing rehab at a [facility] facility after hospital discharge. He will need close follow-up with his primary care physician and with cardiology after
hospital discharge. At the time of hospital discharge he was medically stable.
Referrals:
Katalina Jones CRNP [Specified Professional Personl, Cardiology] - 11/22/24 10:00 am
Campbell Mejia DO [Family Provider, Family Practice]
Prescriptions:
New
losartan 50 mg Tablet
50 mg PO DAILY 30 Days Qty: 30 0RF
donepezil 10 mg Tablet
5 mg PO HS 30 Days Qty: 15 0RF
pramipexole 0.25 mg Tablet
0.25 mg PO HS 30 Days Qty: 30 0RF
Continued
simvastatin 40 MG tablet
40 mg PO QPM
amlodipine [Norvasc] 2.5 mg Tablet
2.5 mg PO DAILY
Discontinued
losartan [Cozaar] 100 MG tablet
100 mg PO DAILY
donepezil 10 mg Tablet
10 mg PO HS
pramipexole 0.25 mg Tablet
1.25 mg PO HS
metformin 500 mg Tablet Extended Release 24 Hr
500 mg PO DAILY
Discharge Orders:
Discharge Patient (As Directed); Ordered 10/30/24
Ordered By: Billy Sky
Discharge Date and Time
Print Language: Upper Sorbian
[2024-10-30 14:56] LABS: Syphilis/T. pallidum Ab Reflex Negative (Negative)
[2024-10-30 15:01] VITALS: BP 105/71
== END 2024-10-30 16:26 | DRG 871 ==
LOC: 4 WEST ACU 15:16
PROVIDERS: Internal Medicine; Nurse Practitioner Family; Physician Assistant Medical; Radiology Vascular & Interventional Radiology; ADMITTING PHYSICIAN Internal Medicine; ATTENDING PHYSICIAN Internal Medicine; CONSULT PHYSICIAN Internal Medicine Cardiovascular Disease; CONSULT PHYSICIAN Internal Medicine Infectious Disease; EMERGENCY PHYSICIAN Emergency Medicine; FAMILY PHYSICIAN Family Medicine
PROC: B01B1ZZ Fluoroscopy of Spinal Cord using Low Osmolar Contrast (ICD-10-PCS; 2024-10-23)
PROC: 009U3ZX Drainage of Spinal Canal, Percutaneous Approach, Diagnostic (ICD-10-PCS; 2024-10-23)
DX: A41.89 Other specified sepsis (principal); A92.31 West Nile virus infection with encephalitis; G92.8 Other toxic encephalopathy; I47.20 Ventricular tachycardia, unspecified; G25.81 Restless legs syndrome; N40.0 Benign prostatic hyperplasia without lower urinary tract symptoms; I10 Essential (primary) hypertension; G30.9 Alzheimer's disease, unspecified; F02.80 Dementia in other diseases classified elsewhere, unspecified severity, without behavioral disturbance, psychotic disturbance, mood disturbance, and anxiety; I08.0 Rheumatic disorders of both mitral and aortic valves; J30.2 Other seasonal allergic rhinitis; K52.9 Noninfective gastroenteritis and colitis, unspecified; E78.5 Hyperlipidemia, unspecified; K59.00 Constipation, unspecified; R73.03 Prediabetes; I45.10 Unspecified right bundle-branch block; E87.6 Hypokalemia; I95.1 Orthostatic hypotension; Z11.52 Encounter for screening for COVID-19; Z79.84 Long term (current) use of oral hypoglycemic drugs; Z79.899 Other long term (current) drug therapy
CPT/HCPCS: 36600; 62328; 70450; 70551; 71045; 71260; 74177; 80048; 80053; 80202; 81003; 81015; 82248; 82306; 82805; 82945; 82962; 83036; 83605; 83735; 83880; 84100; 84157; 84484; 85025; 85027; 85379; 85610; 86592; 86780; 86788; 86803; 87015; 87040; 87045; 87046; 87070; 87205; 87327; 87427; 87476; 87483; 87502; 87641; 87811; 89051; 92526; 92610; 93005; 93306; 96365; 97112; 97163; 97167; 97530; 97535; 99285; Q9967

== ENCOUNTER → 2024-10-31 11:39 | Outpatient (REF) | payer OTHER, SELFPAY ==
[2024-10-31 12:16] LABS: Hematocrit 41.3 % (39.0-52.0); Hemoglobin 13.9 g/dL (13.0-18.0); Mean Corp Hgb Conc. 33.7 g/dL (33.0-37.0); Mean Corpuscular Volume 91.8 fL (80.0-94.0); Nucleated Red Blood Cells % 0 % (-); Platelet Count 344 10^3/uL (130-400); Red Cell Dist. Width 12.5 % (11.5-14.5)
[2024-10-31 12:50] LABS: Blood Urea Nitrogen 25 mg/dl (9-20); Calcium 9.6 mg/dl (8.4-10.2); Carbon Dioxide 28 mmol/L (22-30); Chloride 104 mmol/L (98-107); Glucose 117 mg/dl (70-99); Potassium 4.6 mmol/L (3.5-5.1); Sodium 138 mmol/L (135-145); eGFR > 60.00
== END ==
LOC: OLABP 11:39
PROVIDERS: ATTENDING PHYSICIAN Family Medicine
DX: I10 Essential (primary) hypertension (principal); I95.1 Orthostatic hypotension; N40.0 Benign prostatic hyperplasia without lower urinary tract symptoms; G92.8 Other toxic encephalopathy; R41.82 Altered mental status, unspecified; A92.31 West Nile virus infection with encephalitis; A41.9 Sepsis, unspecified organism; R50.9 Fever, unspecified; E11.9 Type 2 diabetes mellitus without complications; E87.6 Hypokalemia; G25.81 Restless legs syndrome
CPT/HCPCS: 36415; 80048; 85025

== ENCOUNTER → 2024-11-16 09:50 | Outpatient (REF) | payer BC, OTHER, SELFPAY ==
[2024-11-16 10:15] LABS: Hematocrit 43.2 % (39.0-52.0); Hemoglobin 14.8 g/dL (13.0-18.0); Mean Corp Hgb Conc. 34.3 g/dL (33.0-37.0); Mean Corpuscular Volume 92.5 fL (80.0-94.0); Nucleated Red Blood Cells % 0 % (-); Platelet Count 240 10^3/uL (130-400); Red Cell Dist. Width 12.6 % (11.5-14.5)
[2024-11-16 10:24] LABS: Blood Urea Nitrogen 29 mg/dl (9-20); Calcium 9.6 mg/dl (8.4-10.2); Carbon Dioxide 25 mmol/L (22-30); Chloride 104 mmol/L (98-107); Glucose 113 mg/dl (70-99); Potassium 4.7 mmol/L (3.5-5.1); Sodium 137 mmol/L (135-145); eGFR > 60.00
== END ==
LOC: OLABP 09:50
PROVIDERS: ATTENDING PHYSICIAN Family Medicine
DX: R41.82 Altered mental status, unspecified (principal); G92.8 Other toxic encephalopathy; A41.9 Sepsis, unspecified organism; R50.9 Fever, unspecified; E11.9 Type 2 diabetes mellitus without complications; E87.6 Hypokalemia; G25.81 Restless legs syndrome; I10 Essential (primary) hypertension; I95.1 Orthostatic hypotension; N40.0 Benign prostatic hyperplasia without lower urinary tract symptoms
CPT/HCPCS: 36415; 80048; 85025